=== PATIENT | female | born 2005 | race Caucasian/White ===

== ENCOUNTER 2024-11-07 22:17 | Emergency (ER) | payer OTHER, SELFPAY ==
[2024-11-07 22:19] VITALS: BP 122/70; PULSE 67; RESP 16; TEMP 36.7; O2SAT 100; BMI 21.7
--- NOTE | 2024-11-07 22:48 | RAD_ITS ---
PROCEDURE: HAND MIN 3 VIEWS 11/07/2024 REASON FOR EXAM: ? FB. Dining glasses broke in dish tub. Laceration to palmar surface of hand and to anterior 5th digit. TECHNIQUE: Procedure Code: ENOC Modality: DX Procedure: HAND MIN 3 VIEWS Laterality: Left COMPARISON: None. FINDINGS: BONES: No acute fracture or focal osseous lesion. JOINTS: No dislocation. The joint spaces are normal. SOFT TISSUES: The soft tissues are unremarkable. No evidence of radiodense foreign body. RAD/Hand Min 3 Views IMPRESSION: 1. No acute osseous abnormality. 2. No radiodense foreign body seen. Reading Location: [id number]
--- OUTSIDE RECORDS SUMMARY | 2024-11-07 22:58 | XMS RPT_ITS | CCD ---
Author Organization [facility] Care Team Providers Care Health Therapist Name Role Phone Aydin Cast MD Primary Care Provider Aydin Cast Primary Care Unavailable Tito Mejia Attending Unavailable Aydin Cast Referring Unavailable Assessment, Health Risk Referring Unavaila ble Assessment, Health Risk Attending Unavaila ble Aydin Cast Primary Care Unavailable Aydin Cast MD Primary Care Provider NIRMAL SMILEY Attending Unavailable AYDIN CAST Primary Care Unavailable AYDIN CAST Primary Care Unavailable CORINNE SELLERS Referring Unavailable AYDIN CAST Primary Care Unavailable AYDIN CAST Primary Care Unavailable ENEIDA SALDIVAR Attending Unavailable ABEBA HUGGINS Attending Unavailable AYDIN CAST Primary Care Unavailable NIRMAL SMILEY Referring Unavailable AYDIN CAST Primary Care Unavailable Aydin Cast MD Primary Care Provider Allergies Allergy Classification Reported Allergen(s) Allergy Type Date of Onset Reaction(s) Facility (11 sources) Azithromycin; Translations: [AZITHROMYCIN] Drug Allergy 12-02-2004 [facility] Work Phone: (11 sources) cefdinir; Translations: [CEFDINIR] Drug Allergy 04-04-2006 [facility] Work Phone: Medications Current Medications Medication Drug Class(es) Dates Sig (Normalized) Sig (Original) amoxicillin 500 mg oral capsule (2 sources) Penicillin-class Antibacterial Start: 05-23-2022 End: 06-02-2022 take 1 capsule by mouth twice daily amoxicillin (AMOXIL) 500 mg capsule Take 1 capsule by mouth twice daily for 10 days. 20 capsule 0 05/23/2022 06/02/2022 Active Comment on above: Take 1 capsule by [facility] twice daily for 10 days. drospirenone / Ethinyl Estradiol (14 sources) Progestin, Estrogen Start: 02-07-2024 take 1 tablet by mouth once daily Drospirenone-Ethiny l Estradiol (VESTURA, 28,) 3-0.02 mg per tablet Indications: Encounter for surveillance of contraceptive pills Take 1 tablet by mouth once daily. TAKE ACTIVE PILLS ONLY. FOR CONTINUOUS USE. 112 tablet 5 02/07/2024 Active Start: 02-01-2023 End: 02-07-2024 take 1 tablet by mouth once daily Drospirenone-Ethinyl Estradiol (VESTURA, 28,) 3-0.02 mg per tablet Indications: Encounter for surveillance of contraceptive pills Take 1 tablet by mouth once daily. TAKE ACTIVE PILLS ONLY. FOR CONTINUOUS USE. 112 tablet 5 02/01/2023 02/07/2024 Discontinued Start: 02-01-2023 take 1 tablet by cristiana th once daily Drospirenone-Ethinyl Estradiol (VESTURA, 28,) 3-0.02 mg per tablet Indications: Encounter for surveillance of contraceptive pills Take 1 tablet by mouth once daily. TAKE ACTIVE PILLS ONLY. FOR CONTINUOUS USE. 112 tablet 5 02/01/2023 Active Start: 01-30-2022 End: 02-01-2023 take 1 tablet by mouth once daily Drospirenone-Ethinyl Estradiol (VESTURA, 28,) 3-0.02 mg per tablet Indications: Encounter for surveillance of contraceptive pills Take 1 tablet by mouth once daily. TAKE ACTIVE PILLS ONLY. FOR CONTINUOUS USE. 112 tablet 5 01/30/2022 02/01/2023 Discontinued Start: 01-30-2022 take 1 tablet by cristiana th once daily Drospirenone-Ethinyl Estradiol (VESTURA, 28,) 3-0.02 mg per tablet Indications: Encounter for surveillance of contraceptive pills Take 1 tablet by mouth once daily. TAKE ACTIVE PILLS ONLY. FOR CONTINUOUS USE. 112 tablet 5 01/30/2022 Active Start: 01-15-2022 End: 01-30-2022 take 1 tablet by mouth once daily VESTURA, 28, 3-0.02 mg per tablet Indications: Encounter for surveillance of contraceptive pills TAKE 1 TABLET BY MOUTH EVERY DAY 84 tablet 0 01/15/2022 01/30/2022 Discontinued Start: 01-15-2022 take 1 tablet by cristiana th once daily VESTURA, 28, 3-0.02 mg per tablet Indications: Encounter for surveillance of contraceptive pills TAKE 1 TABLET BY MOUTH EVERY DAY 84 tablet 0 01/15/2022 Active Start: 01-11-2021 End: 01-15-2022 take 1 tablet by mouth once daily Drospirenone-Ethinyl Estradiol (VESTURA, 28,) 3-0.02 mg per tablet Indications: Encounter for surveillance of contraceptive pills Take 1 tablet by mouth once daily. 84 tablet 3 01/11/2021 01/15/2022 Discontinued Start: 01-11-2021 take 1 tablet by cristiana th once daily Drospirenone-Ethinyl Estradiol (VESTURA, 28,) 3-0.02 mg per tablet Indications: Encounter for surveillance of contraceptive pills Take 1 tablet by mouth once daily. 84 tablet 3 01/11/2021 Active Comment on above: Take 1 tablet by cristiana th once daily. TAKE 1 TABLET BY CRISTIANA TH EVERY DAY Take 1 tablet by cristiana th once daily. TAKE ACTIVE PILLS ONLY. FOR CONTINUOUS USE. predniSONE 20 mg oral tablet (2 sources) Start: End: take 2 tablets by mouth once daily predniSONE (DELTASONE) 20 mg tablet Indications: Sore throat Take 2 tablets by mouth once daily for 5 days. 10 tablet 02/05/2024 02/10/2024 Active rizatriptan 5 mg oral tablet (3 sources) Serotonin-1b and Serotonin-1d Receptor Agonist Start: take 1 tablet by mouth every two hours as needed for headache rizatriptan (MAXALT) 5 mg tablet Indications: Migraine without aura and without status migrainosus, not intractable Take 1 tablet (5 mg) by mouth as needed for migraine headache (see administration instructions). May repeat dose after 2 hours if needed. Maximum daily dose is 30 mg per day. 12 tablet 02/18/2023 Active Comment on above: Take 1 tablet (5 mg) by mouth as needed for migraine headache (see administration instructions). May repeat dose after 2 hours if needed. Maximum daily dose is 30 mg per day. spironolactone 100 mg oral tablet (3 sources) Aldosterone Antagonist Start: End: take 1 tablet by mouth once daily spironolactone (ALDACTONE) 100 mg tablet TAKE ONE PILL BY MOUTH ONCE A DAY AT THE SAME TIME EVERY DAY 0 01/12/2020 01/30/2022 Discontinued Comment on above: TAKE ONE PILL BY CRISTIANA TH ONCE A DAY AT THE SAME TIME EVERY DAY Problems Active Problems Problem Classification Problem Date Documented Date Episodic/Chronic Contraceptive and procreative management (5 sources) Oral contraception; Translations: [Encounter for surveillance of contraceptive pills] Episodic Headache; including migraine (1 source) Migraine without aura, not refractory ; Translations: [Migraine without aura, not intractable, without status migrainosus] 02-18-2023 Chronic Immunizations and screening for infectious disease (5 sources) Patient encounter status; Translations: [Encounter for screening for infections with a predominantly sexual mode of transmission] Onset: 03-02-2022 Episodic Other upper respiratory infections (2 sources) Sore throat symptom; Translations: [Acute pharyngitis, unspecified] Episodic Residual codes; unclassified (1 source) History of syncope; Translations: [Personal history of other specified conditions] Episodic Syncope (1 source) Near syncope; Translations: [Syncope and collapse] 02-18-2023 Episodic Past or Other Problems Problem Classification Problem Date Documented Da te Episodic/Chronic Conditions associated with dizziness or vertigo (2 sources) Dizziness; Translations: [Dizziness and giddiness] Onset: 08-09-2022 Episodic Other skin disorders (10 sources) Infection of sebaceous cyst; Translations: [Sebaceous cyst] Onset: 09-28-2015 09-28-2015 Episodic Residual codes; unclassified (1 source) Personal history of other specified conditions; Translations: [History of syncope] Onset: 08-09-2022 Episodic Results Test Name Value Interpretation Reference Range Facility STREP A MOLECULAR (POC)on Procedural Control Valid [facility] Strep A (POCT) Negative Negative [facility] CNOVon 02-01-2023 CNOV Office Visit (OBGYWM ) LEONARD CRUZ ([id number]) 1 F Date Time Provider Department 02/01/23 9:30 AM ABEBA HUGGINS OBGYWM During your visit today, we recorded the following information about you: Blood pressure Weight Height Last Period 58.7 kg 1.651 m 01/19/23 Abeba Huggins APRN.DAIRY ASSOCIATE 02/01/2023 9:36 AM Signed Leonard is a 17 year old No obstetric history on file. who presents for an annual gynecologic exam without complaints. Presents: alone Menses: cycles every 28-30 days and 5 days of flow. Contraception: combined hormonal contraceptives HPV vaccine: Yes Last pap smear: never Sexually active: Yes Patient concerns for STD exposure: No. Same partner for 1.5 yrs Pain with intercourse: No Postcoital bleeding: No OB History No obstetric history on file. Credit Negotiator History LMP: 07/19/2022 (Approximate), Having periods Age at Menarche: Age at First : Age at Menopause: Credit Neg[employer]iator History Comments: Sexual Activity: Yes; Male Contraception: Pill PAST MEDICAL HISTORY Diagnosis Date Infected sebaceous cyst Menstrual cycle disorder 09/2015 Age 10 PMH - PAST MEDICAL HISTORY OF recurrent ear infections PMH - PAST MEDICAL HISTORY OF 09/2008 normal color vision PAST SURGICAL HISTORY Procedure Laterality Date ADENOIDECTOMY UNDER AGE 10 SUTURES -SPECIFY above right eyebrow around age 2 years TYMPANOSTOMY LOCAL/TOPICAL ANESTHESIA 10/16/2004 procedure done twice and has had adenoids out FAMILY HISTORY Problem Relation Age of Onset Hypothyroidism Mother No Known Problems Father No Known Problems Sister No Known Problems Brother No Known Problems Brother No Known Problems Maternal Grandmother other (stomach anuerysm) Paternal Grandfather Heart Other PATERNAL AND MATERNAL SIDE Diabetes Other PATERNAL AND MATERNAL SIDE Cancer Other PATERNAL SIDE other (KIDNEY) Other MATERNAL SIDE SOCIAL HISTORY Social History Tobacco Use Smoking status: Never Passive exposure: Never Smokeless tobacco: Never Vaping Use Vaping Use: Never used Substance Use Topics Alcohol use: No Drug use: No REVIEW OF SYSTEMS Abdomen: No bloating, early satiety, indigestion, or increased flatulence. No abdominal pain, nausea, vomiting, diarrhea, or constipation. Bladder: No dysuria, gross hematuria, urinary frequency, urinary urgency, or incontinence. Breast: No breast lumps, nipple d/c, overlying skin changes, redness or skin retraction. Allergies and current medication updated:Yes EXAM: LMP 07/19/2022 GENERAL: pleasant, in no apparent distress HEENT: Normocephalic, atraumatic, mucus membranes moist, and no lesions CHEST: Normal inspiratory effort NEURO: alert and oriented x3,exam grossly non-focal EXTREMITIES: normal ASSESSMENT/PLAN: 1) Health maintenance: Pap starting at the age of 19. Safe sex practices reviewed. HPV vaccine completed series.. 2) Contraception: combined hormonal contraceptives. Contraceptive options reviewed and information provided. 3) STD screening: Declined STD check. 4) Follow up one year or sooner as needed. Abeba Huggins APRN.CNP Referring Provider: SELF [200] Allergies As of Date: 02/01/2023 Noted Allergy Reaction OMNICEF (CEFDINIR) 04/04/2006 4 - Hives ZITHROMAX (AZITHROMYCIN) 12/02/2004 4 - Hives Date Reviewed: 02/01/2023 Reviewed by: Abeba Huggins APRN.DAIRY ASSOCIATE - Fully Assessed Reason for Visit: Yearly Exam [187] Immunizations [194] Cmt: Flu vaccination Primary Visit Diagnosis:Encounter for gynecological examination without abnormal finding [Z01.419] Other Visit Diagnoses:Encounter for surveillance of contraceptive pills [Z30.41] Need for influenza vaccination [Z23] Order(s):INFLUENZA VACCINE, AGE 6 MO - 64 YR, QUADRIVALENT (AFLURIA, FLULAVAL, FLUZONE) [[id number]] Order #: [id number] Drospirenone-Ethinyl Estradiol (VESTURA, 28,) 3-0.02 mg per tabletTake 1 tablet by mouth once daily. TAKE ACTIVE PILLS ONLY. FOR CONTINUOUS USE.Disp: 112 tabletRfl: 5 Prescriptions as of 02/01/2023 - Drospirenone-Ethinyl Estradiol (VESTURA, 28,) 3-0.02 mg per tablet Take 1 tablet by mouth once daily. TAKE ACTIVE PILLS ONLY. FOR CONTINUOUS USE. Meds Comments as of 10/10/2021: 10/10/2021 Pt. stating is not taking spironolactone [place] Problem List As Of Date 02/01/2023 Noted Resolved Infected sebaceous cyst [L72.3, L08.9] 09/28/2015 Prescriptions ordered this encounter Disp Refills Start End DROSPIRENONE 3 MG-ETHINYL ESTRADIOL * 112 * 5 02/01/2023 Route: ORAL Sig: Take 1 tablet by mouth once daily. TAKE ACTIVE PILLS ONLY. FOR CONTINUOUS USE. Medications Discontinued During This Encounter Prescriptions - Drospirenone-Ethinyl Estradiol (VESTURA, 28,) 3-0.02 mg per tablet (Discontinued) Take 1 tablet by mouth once daily. TAKE ACTIVE PILLS ONLY. FOR CONTINUOUS USE. Disposition: Return in about (more content not included)... Normal [facility] Comprehensive metabolic 2000 panelon 08-10-2022 Albumin [Mass/Vol] 4.2 g/dL 3.9 - 4.9 g/dL [facility] ALP [Catalytic activity/Vol] 48 U/L 45 - 87 U/L [facility] ALT [Catalytic activity/Vol] 10 U/L 7 - 38 U/L [facility] Anion gap [Moles/Vol] 11 mmol/L 9 - 18 mmol/L [facility] AST [Catalytic activity/Vol] 16 U/L 13 - 35 U/L [facility] Bilirubin [Mass/Vol] 0.4 mg/dL 0.2 - 1.3 mg/dL [facility] Calcium [Mass/Vol] 9.8 mg/dL 8.5 - 10. 2 mg/dL [facility] Chloride [Moles/Vol] 103 mmol/L 97 - 105 mmol/L [facility] CO2 [Moles/Vol] 25 mmol/L 22 - 30 mmol/L [facility] Creatinine [Mass/Vol] 1.02 mg/dL High 0.58 - 0.96 mg/dL [facility] Estimated Glomerular Filtration Rate 82 mL/min/1.73m >=60 mL/min/1.73m [facility] Glucose [Mass/Vol] 80 mg/dL 74 - 99 mg/dL [facility] Potassium [Moles/Vol] 4.3 mmol/L 3.7 - 5.1 mmol/L [facility] Protein [Mass/Vol] 7.5 g/dL 6.3 - 8.0 g/dL [facility] Sodium [Moles/Vol] 139 mmol/L 136 - 144 mmol/L [facility] Urea nitrogen [Mass/Vol] 12 mg/dL 7 - 21 mg/dL [facility] ECG COMPLETEon 08-10-2022 Atrial Rate 64 BPM [facility] Calculated P [place] -10 degrees [facility] Calculated R [place] 74 degrees [facility] Calculated T [place] 32 degrees [facility] P-R Interval 94 ms [facility] QRS Duration 90 ms [facility] QT Interval 412 ms [facility] QTC Calculation (Bazett) 425 ms [facility] Ventricular Rate 64 BPM [facility] FERRITIN Don 08-10-2022 Ferritin [Mass/Vol] 25.6 ng/mL 14.7 - 2 05.1 ng/mL [facility] T4 FREE/FREE THYROXon 2022 Free T4 [Mass/Vol] 1.2 ng/dL 0.9 - 1.7 ng/dL [facility] TSH [facility] 08-10-2022 TSH Qn 1.410 m[IU]/L 0.510 - 4.300 mIU/L [facility] CBC W Auto Differential pane l (Bld)on 08-09-2022 Basophils (Bld) [#/Vol] 0.07 10*3/uL <0.11 k/uL [facility] Basophils/100 WBC (Bld) 0.8 % [facility] Differential cell count method Nom (Bld) Auto [facility] Eosinophils (Bld) [#/Vol] 0.11 10*3/uL <0.46 k/uL [facility] Eosinophils/100 WBC (Bld) 1.3 % [facility] Erythrocyte distribution width (RBC) [Ratio] 12.6 % 11.5 - 15.0 % [facility] Hematocrit (Bld) [Volume fraction] 40.8 % 36.0 - 46.0 % [facility] Hemoglobin (Bld) [Mass/Vol] 13.8 g/dL 11.5 - 15.5 g/dL [facility] Immature granulocytes (Bld) [#/Vol] <0.10 k/uL [facility] Immature granulocytes/100 WBC (Bld) 0.2 % [facility] Lymphocytes (Bld) [#/Vol] 2.40 10*3/uL 1.00 - 4.00 k/uL [facility] Lymphocytes/100 WBC (Bld) 27.6 % [facility] MCH (RBC) [Entitic mass] 29.4 pg 26.0 - 34.0 pg [facility] MCHC (RBC) [Mass/Vol] 33.8 g/dL 30.5 - 36.0 g/dL [facility] MCV (RBC) [Entitic vol] 86.8 fL 80.0 - 100.0 fL [facility] Monocytes (Bld) [#/Vol] 0.47 10*3/uL <0.87 k/uL [facility] Monocytes/100 WBC (Bld) 5.4 % [facility] Neutrophils (Bld) [#/Vol] 5.61 10*3/uL 1.45 - 7.50 k/uL [facility] Neutrophils/100 WBC (Bld) 64.7 % [facility] Nucleated RBC (Bld) [#/Vol] <0.01 k/uL [facility] Nucleated RBC/100 WBC (Bld) [Ratio] 0.0 /100 WBC [facility] Platelet mean volume (Bld) [Entitic vol] 11.3 fL 9.0 - 12.7 fL [facility] Platelets (Bld) [#/Vol] 306 10*3/uL 150 - 400 k/uL [facility] RBC (Bld) [#/Vol] 4.70 10*6/uL 3.90 - 5.2 0 m/uL [facility] WBC (Bld) [#/Vol] 8.68 10*3/uL 3.70 - 11. 00 k/uL [facility] Basophils (Bld) [#/Vol] 0.07 10*3/uL Normal <0.11 [facility] Comment on above: Order Comment: Speci men Type: BLOOD SPECIMEN Ordering Facility: [facility] Address: [address] [address] Performed By: #### 5 7021-8 #### [facility] CLIA [id number] [address] Basophils/100 WBC (Bld) 0.8 % Normal [facility] Comment on above: Order Comment: Speci men Type: BLOOD SPECIMEN Ordering Facility: [facility] Address: [address] [address] Performed By: #### 5 7021-8 #### [facility] CLIA [id number] [address] [place] [address] [place] Differential cell count method Nom (Bld) Auto Normal [facility] Comment on above: Order Comment: Speci men Type: BLOOD SPECIMEN Ordering Facility: [facility] Address: [address] [place] [address] Performed By: #### 5 7021-8 #### [facility] CLIA [id number] [facility] [place] [address] [place] Eosinophils (Bld) [#/Vol] 0.11 10*3/uL Normal <0.46 [facility] Comment on above: Order Comment: Speci men Type: BLOOD SPECIMEN Ordering Facility: [facility] Address: [address] [place] [address] Performed By: #### 5 7021-8 #### [facility] CLIA [id number] [address] [place] [address] [place] Eosinophils/100 WBC (Bld) 1.3 % Normal [facility] Comment on above: Order Comment: Speci men Type: BLOOD SPECIMEN Ordering Facility: [facility] Address: [address] [place], [place] [address] Performed By: #### 5 7021-8 #### [facility] CLIA [id number] [address] [place] [address] [place] Erythrocyte distribution width (RBC) [Ratio] 12.6 % Normal 11.5-15.0 [facility] Comment on above: Order Comment: Speci men Type: BLOOD SPECIMEN Ordering Facility: [facility] Address: [address] [place], [place] [address] Performed By: #### 5 7021-8 #### [facility] CLIA [id number] [address] [place] [address] [place] Hematocrit (Bld) [Volume fraction] 40.8 % Normal 36.0-46.0 [facility] Comment on above: Order Comment: Speci men Type: BLOOD SPECIMEN Ordering Facility: [facility] Address: [address] Performed By: #### 5 7021-8 #### [facility] CLIA [id number] [address] [place] [address] [place] Hemoglobin (Bld) [Mass/Vol] 13.8 g/dL Normal 11.5-15.5 [facility] Comment on above: Order Comment: Speci men Type: BLOOD SPECIMEN Ordering Facility: [facility] Address: [address] Performed By: #### 5 7021-8 #### [facility] CLIA [id number] [address] [place] [address] [place] Immature granulocytes (Bld) [#/Vol] 10*3/uL Normal <0.10 [facility] Comment on above: Order Comment: Speci men Type: BLOOD SPECIMEN Ordering Facility: [facility] Address: [address] Performed By: #### 5 7021-8 #### [facility] CLIA [id number] [address] [place] [address] [place] Immature granulocytes/100 WBC (Bld) 0.2 % Normal [facility] Comment on above: Order Comment: Speci men Type: BLOOD SPECIMEN Ordering Facility: [facility] Address: [address] Performed By: #### 5 7021-8 #### [facility] CLIA [id number] [address] [place] [address] [place] Lymphocytes (Bld) [#/Vol] 2.40 10*3/uL Normal 1.00-4.00 [facility] Comment on above: Order Comment: Speci men Type: BLOOD SPECIMEN Ordering Facility: [facility] Address: [address] Performed By: #### 5 7021-8 #### [facility] CLIA [id number] [address] [place] [address] [place] Lymphocytes/100 WBC (Bld) 27.6 % Normal [facility] Comment on above: Order Comment: Speci men Type: BLOOD SPECIMEN Ordering Facility: [facility] Address: [address] [place] [address] Performed By: #### 5 7021-8 #### [facility] CLIA [id number] [address] [place] [address] [place] MCH (RBC) [Entitic mass] 29.4 pg Normal 26.0-34.0 [facility] Comment on above: Order Comment: Speci men Type: BLOOD SPECIMEN Ordering Facility: [facility] Address: [address] [place] [address] Performed By: #### 5 7021-8 #### [facility] CLIA [id number] [address] [place] [address] [place] MCHC (RBC) [Mass/Vol] 33.8 g/dL Normal 30.5-36.0 [facility] Comment on above: Order Comment: Speci men Type: BLOOD SPECIMEN Ordering Facility: [facility] Address: [address] [place], [place] [address] Performed By: #### 5 7021-8 #### [facility] CLIA [id number] [address] [place] [address] [place] MCV (RBC) [Entitic vol] 86.8 fL Normal 80.0-100.0 [facility] Comment on above: Order Comment: Speci men Type: BLOOD SPECIMEN Ordering Facility: [facility] Address: [address] [place], [place] [address] Performed By: #### 5 7021-8 #### [facility] CLIA [id number] [address] [place] [address] [place] Monocytes (Bld) [#/Vol] 0.47 10*3/uL Normal <0.87 [facility] Comment on above: Order Comment: Speci men Type: BLOOD SPECIMEN Ordering Facility: [facility] Address: [address] Performed By: #### 5 7021-8 #### [facility] CLIA [id number] [address] [place] [address] [place] Monocytes/100 WBC (Bld) 5.4 % Normal [facility] Comment on above: Order Comment: Speci men Type: BLOOD SPECIMEN Ordering Facility: [facility] Address: [address] Performed By: #### 5 7021-8 #### [facility] CLIA [id number] [address] [place] [address] [place] Neutrophils (Bld) [#/Vol] 5.61 10*3/uL Normal 1.45-7.50 [facility] Comment on above: Order Comment: Speci men Type: BLOOD SPECIMEN Ordering Facility: [facility] Address: [address] Performed By: #### 5 7021-8 #### [facility] CLIA [id number] [address] [place] [address] [place] Neutrophils/100 WBC (Bld) 64.7 % Normal [facility] Comment on above: Order Comment: Speci men Type: BLOOD SPECIMEN Ordering Facility: [facility] Address: [address] Performed By: #### 5 7021-8 #### [facility] CLIA [id number] [address] [place] [address] [place] Nucleated RBC (Bld) [#/Vol] 10*3/uL Normal <0.01 [facility] Comment on above: Order Comment: Speci men Type: BLOOD SPECIMEN Ordering Facility: [facility] Address: [address] Performed By: #### 5 7021-8 #### [facility] CLIA [id number] [address] [place] [address] [place] Nucleated RBC/100 WBC (Bld) [Ratio] 0.0 /100 WBC Normal [facility] Comment on above: Order Comment: Speci men Type: BLOOD SPECIMEN Ordering Facility: [facility] Address: [address] [place], [place] [address] Performed By: #### 5 7021-8 #### [facility] CLIA [id number] [address] [place] [address] [place] Platelet mean volume (Bld) [Entitic vol] 11.3 fL Normal 9.0-12.7 [facility] Comment on above: Order Comment: Speci men Type: BLOOD SPECIMEN Ordering Facility: [facility] Address: [address] [place] [address] Performed By: #### 5 7021-8 #### [facility] CLIA [id number] [address] [place] [address] [place] Platelets (Bld) [#/Vol] 306 10*3/uL Normal 150-400 [facility] Comment on above: Order Comment: Speci men Type: BLOOD SPECIMEN Ordering Facility: [facility] Address: [address] [place], [place] [address] Performed By: #### 5 7021-8 #### [facility] CLIA [id number] [address] [place] [address] [place] RBC (Bld) [#/Vol] 4.70 10*6/uL Normal 3.90-5.20 [facility] Comment on above: Order Comment: Speci men Type: BLOOD SPECIMEN Ordering Facility: [facility] Address: [address] [place], [place] [address] Performed By: #### 5 7021-8 #### [facility] CLIA [id number] [address] [place] [address] [facility] WBC (Bld) [#/Vol] 8.68 10*3/uL Normal 3.70-11.00 [facility] Comment on above: Order Comment: Speci men Type: BLOOD SPECIMEN Ordering Facility: [facility] Address: [address] [id number] Performed By: #### 5 7021-8 #### [facility] CLIA [id number] [address] [facility] [address] [facility] CNOVon 08-09-2022 CNOV Office Visit (PEDSWS ) LEONARD CRUZ ([id number]) 1 F Date Time Provider Department 08/09/22 3:30 PM NIRMAL SMILEY During your visit today, we recorded the following information about you: Temperature Pulse Respiration Blood pressure 98.1 degrees 84/minute 12/minute 110/74 Weight Last Period 58.5 kg 07/19/22 Nirmal Smiley APRN.DAIRY ASSOCIATE 08/15/2022 5:38 PM Signed PEDIATRIC SICK VISIT SUBJECTIVE: Leonard Villegas is a 16 year old accompanied by mother. Patient presents with: Dizzy spells : Has been having dizzy spells since she had strep throat on 05/23/2022. Reporting that she had syncope while in express care being seen for strep throat, denies any other syncope. Dizzy spells almost daily, but not every single day. Episodes are very short only a few seconds in length, happens with exercise at the gym and at work more often. 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 Had moment at [employer] recently when her heart was racing and she felt like she couldn't take a deep breath History was obtained from: patient Current symptoms: FEVER: not present at this time EYE SYMPTOMS: not present at this time NASAL CONGESTION: not present at this time EAR SYMPTOMS: not present at this time COUGH: not present at this time SORE THROAT: not present at this time HEADACHE: not present at this time VOMITING: not present at this time NAUSEA: not present at this time DIARRHEA: not present at this time ABDOMINAL PAIN: not present at this time RASH: not present at this time GENERAL: Activity level at child's baseline Appetite: no significant change Sick contacts: No known sick contacts HISTORY: ACTIVE PROBLEM LIST Infected Sebaceous Cyst PAST MEDICAL HISTORY Diagnosis Date - Infected sebaceous cyst - Menstrual cycle disorder 09/2015 Age 10 - PMH - PAST MEDICAL HISTORY OF recurrent ear infections - PMH - PAST MEDICAL HISTORY OF 09/2008 normal color vision PAST SURGICAL HISTORY Procedure Laterality Date - ADENOIDECTOMY UNDER AGE 10 - SUTURES -SPECIFY above right eyebrow around age 2 years - TYMPANOSTOMY LOCAL/TOPICAL ANESTHESIA 10/16/2004 procedure done twice and has had adenoids out Allergies: ALLERGIES Allergen Reactions - Omnicef [Cefdinir] Hives - Zithromax [Azithrom* Hives Medications: - Drospirenone-Ethinyl Estradiol (VESTURA, 28,) 3-0.02 mg per tablet Take 1 tablet by mouth once daily. TAKE ACTIVE PILLS ONLY. FOR CONTINUOUS USE. OBJECTIVE: BP 110/74 Pulse 84 Temp 36.7 ?C (98.1 ?F) (Temporal Artery) Resp 12 Wt 58.5 kg (129 lb) LMP 07/19/2022 (Approximate) General: well appearing, alert and active in no apparent distress Eyes: conjunctiva clear, PERRL Ears: TMs translucent bilaterally, normal landmarks noted Nose: no rhinorrhea, no mucosal edema OP: no lesions, no erythema, moist mucous membranes Neck: supple, no adenopathy Lungs: clear to auscultation bilaterally, good air exchange, no retractions, no wheezes or crackles CVS: Normal rate, regular rhythm, no murmur Abdomen: soft, nondistended, nontender, no hepatosplenomegaly or masses, and no rebound or guarding Skin: No rashes, lesions or skin changes Neuro: No focal deficits or abnormal findings present ASSESSMENT/PLAN: Encounter Diagnosis ICD-10-CM 1. Dizziness R42 CBC + DIFF COMP METABOLIC PANEL FERRITIN BLD TSH BLD T4 FREE/FREE THYROX ECG COMPLETE 2. History of syncope Z87.898 CBC + DIFF COMP METABOLIC PANEL FERRITIN BLD TSH BLD T4 FREE/FREE THYROX ECG COMPLETE - EKG normal in office. Consulted with Dr. Cast. Pending final reading by cardiology. - Orthostatic vitals not consistent with orthostatic hypotension or POTS. - Labs ordered and results pending. - Likely vasovagal syncope - Discussed importance of regular hydration, adequate salt intake, eating regularly. May trial compression stockings. - Return to clinic for persistent or worsening symptoms, as needed based on lab results, or for any concerns. Medical Decision Making: Problems: Moderate: New problem with uncertain prognosis Data: Unique test(s) ordered: 3+ Risk: Low: Low risk from testing/treatment Medical Decision Making Level: 4 - Moderate Allergies As of Date: 08/09/2022 Noted Allergy Reaction OMNICEF (CEFDINIR) 04/04/2006 4 - Hives ZITHROMAX (AZITHROMYCIN) 12/02/2004 4 - Hives Date Reviewed: 08/09/2022 Reviewed by: Nirmal Smiley APRN.DAIRY ASSOCIATE - Fully Assessed Reason for Visit: Dizzy spells [Other] Cmt: Has been having dizzy spe (more content not included)... Normal [facility] Comprehensive metabolic 2000 panelon 08-09-2022 Albumin [Mass/Vol] 4.2 g/dL Normal 3.9-4.9 [facility] Comment on above: Order Comment: Tricia chavez Type: BLOOD SPECIMEN Ordering Facility: [facility] Address: [address] [place], [place] [phone] Performed By: #### 2 276-4, 3016-3, 95158-4, 1714-7 #### [facility] CLIA [id number] [address] [facility] [place] [address] [place] ALP [Catalytic activity/Vol] 48 U/L Normal 45-87 [facility] Comment on above: Order Comment: Speci men Type: BLOOD SPECIMEN Ordering Facility: [facility] Address: [address] [place], [place] [address] Performed By: #### 2 276-4, 3016-3, 86766-6, 302-7 #### [facility] CLIA [id number] [address] [place] [address] [place] ALT [Catalytic activity/Vol] 10 U/L Normal 7-38 [facility] Comment on above: Order Comment: Speci men Type: BLOOD SPECIMEN Ordering Facility: [facility] Address: [address] [place] [address] Performed By: #### 2 276-4, 3016-3, 95223-6, 302-7 #### [facility] CLIA [id number] [address] [place] [address] [place] Anion gap [Moles/Vol] 11 mmol/L Normal 9-18 [facility] Comment on above: Order Comment: Speci men Type: BLOOD SPECIMEN Ordering Facility: [facility] Address: [address] [place] [address] Performed By: #### 2 276-4, 3016-3, 57327-0, 302-7 #### [facility] CLIA [id number] [address] [place] [address] [place] AST [Catalytic activity/Vol] 16 U/L Normal 13-35 [facility] Comment on above: Order Comment: Speci men Type: BLOOD SPECIMEN Ordering Facility: [facility] Address: [address] [place], [place] [address] Performed By: #### 2 276-4, 3016-3, 28263-0, 302-7 #### [facility] CLIA [id number] [address] [place] [address] [place] Bilirubin [Mass/Vol] 0.4 mg/dL Normal 0.2-1.3 [facility] Comment on above: Order Comment: Speci men Type: BLOOD SPECIMEN Ordering Facility: [facility] Address: [address] [place], [place] [phone] Performed By: #### 2 276-4, 3016-3, 39556-9, 3024-7 #### [facility] CLIA [id number] [address] [place] [address] [place] Calcium [Mass/Vol] 9.8 mg/dL Normal 8.5-10.2 [facility] Comment on above: Order Comment: Speci men Type: BLOOD SPECIMEN Ordering Facility: [facility] Address: [address] [place], [place] [address] Performed By: #### 2 276-4, 3016-3, 51601-2, 302-7 #### [facility] CLIA [id number] [address] [place] [address] [place] Chloride [Moles/Vol] 103 mmol/L Normal 97-105 [facility] Comment on above: Order Comment: Speci men Type: BLOOD SPECIMEN Ordering Facility: [facility] Address: [address] [place], [place] [address] Performed By: #### 2 276-4, 3016-3, 36658-1, 302-7 #### [facility] CLIA [id number] [address] [place] [address] [place] CO2 [Moles/Vol] 25 mmol/L Normal 22-30 [facility] Comment on above: Order Comment: Speci men Type: BLOOD SPECIMEN Ordering Facility: [facility] Address: [address] [place], [place] [phone] Performed By: #### 2 276-4, 3016-3, 18303-1, 3024-7 #### [facility] CLIA [id number] [address] [place] [address] [place] Creatinine [Mass/Vol] 1.02 mg/dL High 0.58-0.96 [facility] Comment on above: Order Comment: Speci men Type: BLOOD SPECIMEN Ordering Facility: [facility] Address: [address] [place] [address] Performed By: #### 2 276-4, 3016-3, 17968-4, 3024-7 #### [facility] CLIA [id number] [address] [place] [address] [place] ESTIMATED GLOMERULAR FILTRATION RATE 82 mL/min/1.73m??? Normal >=60 [facility] Comment on above: Order Comment: Tricia chavez Type: BLOOD SPECIMEN Ordering Facility: [facility] Address: [address] [phone] Result Comment: Wilma mated Glomerular Filtration Rate (eGFR) is calculated using the 2020 CKD-EPI creatinine equation. This equation utilizes serum creatinine, sex, and age as parameters. The creatinine assay has traceable calibration to isotope dilution-mass spectrometry. Refer to KDIGO guidelines for clinical interpretation. In patients with unstable renal function, e.g. those with acute kidney injury, the eGFR may not accurately reflect actual GFR. Performed By: #### 2 276-4, 3016-3, 36014-5, 3024-7 #### [facility] CLIA [id number] [address] [place] [address] [place] Glucose [Mass/Vol] 80 mg/dL Normal 74-99 [facility] Comment on above: Order Comment: Tricia chavez Type: BLOOD SPECIMEN Ordering Facility: [facility] Address: [address] [place], [place] [phone] Result Comment: The [place] Diabetes Association (ADA) provides guidance for cutoff values for fasting glucose and random glucose. The ADA defines fasting as no caloric intake for at least 8 hours. Fasting plasma glucose results between 100 to 125 mg/dL indicate increased risk for diabetes (prediabetes). Fasting plasma glucose results greater than or equal to 126 mg/dL meet the criteria for diagnosis of diabetes. In the absence of unequivocal hyperglycemia, results should be confirmed by repeat testing. In a patient with classic symptoms of hyperglycemia or hyperglycemic crisis, random plasma glucose results greater than or equal to 200 mg/dL meet the criteria for diagnosis of diabetes. Reference: Standards of Medical Care in Diabetes 2016, [place] Diabetes Association. Diabetes Care. 2016.39(Suppl 1). Performed By: #### 2 276-4, 3016-3, 04832-6, 3024-7 #### [facility] CLIA [id number] [address] [place] [address] [place] Potassium [Moles/Vol] 4.3 mmol/L Normal 3.7-5.1 [facility] Comment on above: Order Comment: Speci men Type: BLOOD SPECIMEN Ordering Facility: [facility] Address: [address] Performed By: #### 2 276-4, 3016-3, 88384-2, 302-7 #### [facility] CLIA [id number] [address] [place] [address] [place] Protein [Mass/Vol] 7.5 g/dL Normal 6.3-8.0 [facility] Comment on above: Order Comment: Speci men Type: BLOOD SPECIMEN Ordering Facility: [facility] Address: [address] [place], [place] [address] Performed By: #### 2 276-4, 3016-3, 26291-4, 302-7 #### [facility] CLIA [id number] [address] [place] [address] [place] Sodium [Moles/Vol] 139 mmol/L Normal 136-144 [facility] Comment on above: Order Comment: Speci men Type: BLOOD SPECIMEN Ordering Facility: [facility] Address: [address] [place] [address] Performed By: #### 2 276-4, 3016-3, 81992-0, 302-7 #### [facility] CLIA [id number] [address] [place] [address] [place] Urea nitrogen [Mass/Vol] 12 mg/dL Normal 7-21 [facility] Comment on above: Order Comment: Speci men Type: BLOOD SPECIMEN Ordering Facility: [facility] Address: [address] [place] [address] Performed By: #### 2 276-4, 3016-3, 98268-5, 3024-7 #### [facility] IA [id number] [facility] [place] [address] [place] TEO04ia 08-09-2022 ECG01 Ventricular Rate : 6 4 BPM Atrial Rate : 64 BPM P-R Interval : 94 ms QRS Duration : 90 ms Q-T Interval : 412 ms QTC Calculation(Bazett) : 425 ms Calculated P [place] : -10 degrees Calculated R [place] : 74 degrees Calculated T [place] : 32 degrees LOW RIGHT ATRIAL RHYTHM Confirmed by GABRIEL DOUGLAS M.D. (82) on 08/10/2022 8:02:38 AM NAME : LEONARD CRUZ PID : [id number] : 2005 Gender : Female Race : ORD : Procedure Date : Aug 09 2022 16:02:07 Edit Date : Aug 10 2022 08:02:42 Diagnosis: LOW RIGHT ATRIAL RHYTHM Confirmed by GABRIEL DOUGLAS M.D. (82) on 08/10/2022 8:02:38 AM Test Reason : dizzy Location : 144 : [facility] Overread By : GABRIEL DOUGLAS M.D. Edited By : GABRIEL DOUGLAS M.D. Referred By : nirmal smiley Acquired by : manoj cordero, Normal [facility] Ferritin SerPl-mCncon 2022 Ferritin [Mass/Vol] 25.6 ng/mL Normal 14.7-205.1 [facility] Comment on above: Order Comment: Speci men Type: BLOOD SPECIMEN Ordering Facility: [facility] Address: [address] [place] [address] Performed By: #### 2 276-4, 3016-3, 38417-6, 3024-7 #### [facility] IA [id number] [facility] [place] [address] [place] T4 Free SerPl-mCncon 023 Free T4 [Mass/Vol] 1.2 ng/dL Normal 0.9-1.7 [facility] Comment on above: Order Comment: Speci men Type: BLOOD SPECIMEN Ordering Facility: [facility] Address: [address] [phone] Performed By: #### 2 276-4, 3016-3, 06151-5, 3024-7 #### [facility] CLIA [id number] [address] [place] [address] [place] TSH SerPl-aCncon 08-09-2022 TSH Qn 1.410 m[IU]/L Normal 0.510-4.300 [facility] Comment on above: Order Comment: Ambersandeep chavez Type: BLOOD SPECIMEN Ordering Facility: [facility] Address: [address] Result Comment: If t he patient is , TSH reference range varies by gestational period: First Trimester (weeks 9-12): 0.180-2.990 mIU/L Second Trimester: 0.110-3.980 mIU/L Third Trimester: 0.480-4.710 mIU/L Brad Barber et al. A Practical Approach for the Verifications and Determination of Site- and Trimester-Specific Reference Intervals for Thyroid Function tests in . Thyroid, 2019:29:3:412-420. Eliecer E, et al. 2017 Guidelines of the [place] Thyroid Association for the Diagnosis and Management of Thyroid Disease during and the . Thyroid, 2017:27:3:315-389. Reference ranges were not locally established for this patient's age group. The normal values are based on the following source: Natalio W, Kira V. Reference Ranges for Adults and Children: Pre-analytical Considerations. [employer] Performed By: #### 2 276-4, 3016-3, 15575-2, 3024-7 #### [facility] CLIA [id number] [address] [place] [address] [place] CNOVon 05-23-2022 CNOV Office Visit (UCWSTR ) RADHA LEONARD VILLEGAS ([id number]) 1 F Date Time Provider Department 05/23/22 9:15 AM CATHERINE COON During your visit today, we recorded the following information about you: Temperature Pulse Respiration Blood pressure 99.8 degrees 110/minute 16/minute 112/66 Weight 56.2 kg Catherine Coon APRN.DAIRY ASSOCIATE 05/23/2022 9:55 AM Signed Subjective HPI Christine presents with one day hx of sorethroat and headache, she states her parents were sick for a few weeks and 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 She states she has not had a fever, she is eating and drinking well, and denies rash at this time, Feeling very lightheaded as heading to bathroom, pt legs elevated, cool washwrag to head, she has not eaten, juice and water provided, states feels back to her self. Boyfriend called to drive her home, she is aware if this happens again report to ED PAST MEDICAL HISTORY Diagnosis Date Infected sebaceous cyst Menstrual cycle disorder 09/2015 Age 10 PMH - PAST MEDICAL HISTORY OF recurrent ear infections PMH - PAST MEDICAL HISTORY OF 09/2008 normal color vision PAST SURGICAL HISTORY Procedure Laterality Date ADENOIDECTOMY UNDER AGE 10 SUTURES -SPECIFY above right eyebrow around age 2 years TYMPANOSTOMY LOCAL/TOPICAL ANESTHESIA 10/16/2004 procedure done twice and has had adenoids out ALLERGIES Omnicef [Cefdinir] and Zithromax [Azithromycin] MEDICATIONS Drospirenone-Ethinyl Estradiol (VESTURA, 28,) 3-0.02 mg per tablet Take 1 tablet by mouth once daily. TAKE ACTIVE PILLS ONLY. FOR CONTINUOUS USE. amoxicillin (AMOXIL) 500 mg capsule Take 1 capsule by mouth twice daily for 10 days. FAMILY HISTORY Problem Relation Age of Onset Hypothyroidism Mother No Known Problems Father No Known Problems Sister No Known Problems Brother No Known Problems Brother No Known Problems Maternal Grandmother other (stomach anuerysm) Paternal Grandfather Heart Other PATERNAL AND MATERNAL SIDE Diabetes Other PATERNAL AND MATERNAL SIDE Cancer Other PATERNAL SIDE other (KIDNEY) Other MATERNAL SIDE Social History Tobacco Use Smoking status: Never Smokeless tobacco: Never Vaping Use Vaping Use: Never used Substance Use Topics Alcohol use: No Drug use: No Review of Systems HENT: Positive for sore throat. Objective Physical Exam Constitutional: Appearance: Normal appearance. HENT: Head: Normocephalic and atraumatic. Nose: Congestion present. Mouth/Throat: Mouth: Mucous membranes are dry. Pharynx: Posterior oropharyngeal erythema present. No oropharyngeal exudate. Eyes: Extraocular Movements: Extraocular movements intact. Pupils: Pupils are equal, round, and reactive to light. Cardiovascular: Rate and Rhythm: Normal rate and regular rhythm. Pulses: Normal pulses. Heart sounds: No murmur heard. Pulmonary: Effort: Pulmonary effort is normal. Breath sounds: Normal breath sounds. Abdominal: General: Abdomen is flat. Palpations: Abdomen is soft. Musculoskeletal: General: Normal range of motion. Skin: General: Skin is warm. Neurological: General: No focal deficit present. Mental Status: She is alert and oriented to person, place, and time. Psychiatric: Mood and Affect: Mood normal. ASSESSMENT/PLAN: 1. Sore throat - ICD9: 462, ICD10: J02.9 Amox ( she states she has had, she is not allergic) Increase fluids - STREP A MOLECULAR (POC) - RAPID STREP TEST B/O - COVID WITH FLUA+B, ROUTINE Catherine Coon APRN.CNP Allergies As of Date: 05/23/2022 Noted Allergy Reaction OMNICEF (CEFDINIR) 04/04/2006 4 - Hives ZITHROMAX (AZITHROMYCIN) 12/02/2004 4 - Hives Date Reviewed: 01/30/2022 Reviewed by: Corinne Sellers APRN.CNP - Fully Assessed Reason for Visit: Sinus Problem [99] Cmt: sinus pressure, drainage, headache and sore throat x 1 day Primary Visit Diagnosis:Sore throat [J02.9] Order(s):STREP A MOLECULAR (POC) [1723072] Order #: [id number]. #:[id number] RAPID STREP TEST B/O [0945051] Order #: [id number] COVID WITH FLUA+B, ROUTINE [SQCOVFLU] Order #: [id number]. #:[id number] amoxicillin (AMOXIL) 500 mg capsuleTake 1 capsule by mouth twice daily for 10 days.Disp: 20 capsuleRfl: 0 Prescriptions as of 05/23/2022 - amoxicillin (AMOXIL) 500 mg capsule Take 1 capsule by mouth twice daily for 10 days. - Drospirenone-Ethinyl Estradiol (VESTURA, 28,) 3-0.02 mg per tablet Take 1 tablet by mouth once daily. TAKE ACTIVE PILLS ONLY. FOR CONTINUOUS USE. Meds Comments as of 10/10/2021: 10/10/2021 Pt. stating is not taking spironolactone [place] Problem List As Of Date 05/23/2022 Noted Resolved Infected sebaceous cyst [L72.3, L08.9] 09/28/2015 Prescriptions ordered this encounter Disp Refills Start End AMOXICILLIN 500 MG CAPSULE 20 c* 0 05/23/2022 06/02/2022 Route: ORAL S (more content not included)... Normal [facility] FLUABV + SARS-CoV-2 Pnl Resp RAMANDEEP+prbon 05-23-2022 Influenza virus A and B RNA and SARS-CoV-2 (COVID-19) N gene panel RAMANDEEP+probe (Resp) COVID 19 RESULT: Not detected The method used is RT-PCR or an equivalent NAAT method. Reference Range (the expected result in uninfected individuals): Not detected INFLUENZA A PCR: Not detected INFLUENZA B PCR: Not detected Normal [facility] Comment on above: Performed By: #### 9 5422-2 #### [facility] CLIA [id number] [address] [place] [address] [place] STREP A MOLECULAR (POC)on Procedural Control Valid [facility] Strep A (POCT) Positive Abnormal Negative [facility] C trach+GC DNA Ur Ql RAMANDEEP+pro beon 03-02-2022 C. trachomatis+N. gonorrhoeae DNA RAMANDEEP+probe Ql (U) GC AMPLIFICATION: Negative for Neisseria gonorrhoeae by amplification CHLAMYDIA AMPLIFICATION: Negative for Chlamydia trachomatis by amplification Normal [facility] Comment on above: Performed By: #### 4 4806-8 #### [facility] CLIA [id number] [address] [address] [place] Office Visit Reporton 2021 Office Visit Report [facility] [address] [place] [address] OFFICE VISIT Date of Service: 12/15/21 MR#: [id number] Acct: [id number] Patient: LEONARD EDMONDS Rep #: [id number] : 2005 Provider: DEVON jackson Age/Sex: 16/F Location: [facility] Status: Signed Intake Intake Visit Reasons: TB READ 12/15/21 1741 Date Tito Patrick Signature: Date (if applicable) CC: Normal [facility] Vital Signs Date Time Vital Sign Value Performing Clinician Rodney clarke 02-07-2024 10:00-0500 Body height 167 cm Abeba Joseluis TOASTER OPERATOR.DAIRY ASSOCIATE Work Phone: [facility] 02-07-2024 10:00-0500 Body mass index (BMI) [Ratio] 20.07 kg/m2 Abeba Joseluis TOASTER OPERATOR.DAIRY ASSOCIATE Work Phone: [facility] 02-07-2024 10:00-0500 Body weight 55.97 kg Abeba Collins TOASTER OPERATOR.DAIRY ASSOCIATE Work Phone: [facility] 02-07-2024 10:00-0500 Diastolic blood pressure 60 mm[Hg] Abeba Collins TOASTER OPERATOR.DAIRY ASSOCIATE Work Phone: [facility] 02-07-2024 10:00-0500 Systolic blood pressure 98 mm[Hg] Abeba Collins TOASTER OPERATOR.DAIRY ASSOCIATE Work Phone: [facility] 02-05-2024 12:37-0500 Body mass index (BMI) [Ratio] 20.75 kg/m2 Gerardo Jarrell TOASTER OPERATOR.DAIRY ASSOCIATE Work Phone: [facility] 02-05-2024 12:37-0500 Body temperature 97.3 [degF] Gerardoflorin Jarrell TOASTER OPERATOR.DAIRY ASSOCIATE Work Phone: [facility] 02-05-2024 12:37-0500 Body weight 57.6 kg Gerardo Wesly TOASTER OPERATOR.DAIRY ASSOCIATE Work Phone: [facility] 02-05-2024 12:37-0500 Diastolic blood pressure 62 mm[Hg] Gerardoflorin Jarrell TOASTER OPERATOR.DAIRY ASSOCIATE Work Phone: [facility] 02-05-2024 12:37-0500 Heart rate 77 /min Gerardo Jarrell TOASTER OPERATOR.DAIRY ASSOCIATE Work Phone: [facility] 02-05-2024 12:37-0500 Respiratory rate 18 /min Gerardo Jarrell TOASTER OPERATOR.DAIRY ASSOCIATE Work Phone: [facility] 02-05-2024 12:37-0500 SaO2% (BldA) [Mass fraction] 98 % Gerardo Wesly TOASTER OPERATOR.DAIRY ASSOCIATE Work Phone: [facility] 02-05-2024 12:37-0500 Systolic blood pressure 122 mm[Hg] Gerardo Wesly TOASTER OPERATOR.DAIRY ASSOCIATE Work Phone: [facility] 02-18-2023 08:14-0500 Body height 166.6 cm Eneida Saldivar MD Work Phone: [facility] 02-18-2023 08:14-0500 Body temperature 97.7 [degF] Eneida Saldivar MD Work Phone: [facility] 02-18-2023 08:14-0500 Body weight 57.7 kg Eneida Saldivar MD Work Phone: [facility] 02-18-2023 08:14-0500 Diastolic blood pressure 66 mm[Hg] Eneida Saldivar MD Work Phone: [facility] 02-18-2023 08:14-0500 Heart rate 80 /min Eneida Saldivar MD Work Phone: [facility] 02-18-2023 08:14-0500 Respiratory rate 16 /min Eneida Saldivar MD Work Phone: [facility] 02-18-2023 08:14-0500 Systolic blood pressure 104 mm[Hg] Eneida Saldivar MD Work Phone: [facility] 02-01-2023 09:19-0500 Body height 165.1 cm Abeba Joseluis TOASTER OPERATOR.DAIRY ASSOCIATE Work Phone: [facility] 02-01-2023 09:19-0500 Body weight 58.7 kg Abeba Joseluis TOASTER OPERATOR.DAIRY ASSOCIATE Work Phone: [facility] 02-01-2023 09:19-0500 Diastolic blood pressure 62 mm[Hg] Abeba Collins TOASTER OPERATOR.DAIRY ASSOCIATE Work Phone: [facility] 02-01-2023 09:19-0500 Systolic blood pressure 88 mm[Hg] Abeba Collins TOASTER OPERATOR.DAIRY ASSOCIATE Work Phone: [facility] 08-09-2022 15:32-0400 Body temperature 98.1 [degF] Nirmal Smiley TOASTER OPERATOR.DAIRY ASSOCIATE Work Phone: [facility] 08-09-2022 15:32-0400 Body weight 58.51 kg Nirmal Smiley TOASTER OPERATOR.DAIRY ASSOCIATE Work Phone: [facility] 08-09-2022 15:32-0400 Diastolic blood pressure 74 mm[Hg] Nirmal Smiley TOASTER OPERATOR.DAIRY ASSOCIATE Work Phone: [facility] 08-09-2022 15:32-0400 Heart rate 84 /min Nirmal Smiley TOASTER OPERATOR.DAIRY ASSOCIATE Work Phone: [facility] 08-09-2022 15:32-0400 Respiratory rate 12 /min Nirmal Smiley TOASTER OPERATOR.DAIRY ASSOCIATE Work Phone: [facility] 08-09-2022 15:32-0400 Systolic blood pressure 110 mm[Hg] Nirmal Smiley TOASTER OPERATOR.DAIRY ASSOCIATE Work Phone: [facility] 05-23-2022 09:19-0400 Body temperature 99.81 [degF] Catherine Coon TOASTER OPERATOR.DAIRY ASSOCIATE Work Phone: [facility] 05-23-2022 09:19-0400 Body weight 56.25 kg Catherine Coon TOASTER OPERATOR.DAIRY ASSOCIATE Work Phone: [facility] 05-23-2022 09:19-0400 Diastolic blood pressure 66 mm[Hg] Catherine Coon TOASTER OPERATOR.DAIRY ASSOCIATE Work Phone: [facility] 05-23-2022 09:19-0400 Heart rate 110 /min Catherine Coon TOASTER OPERATOR.DAIRY ASSOCIATE Work Phone: [facility] 05-23-2022 09:19-0400 Respiratory rate 16 /min Catherine Coon TOASTER OPERATOR.DAIRY ASSOCIATE Work Phone: [facility] 05-23-2022 09:19-0400 SaO2% (BldA) [Mass fraction] 97 % Catherine Coon TOASTER OPERATOR.DAIRY ASSOCIATE Work Phone: [facility] 05-23-2022 09:19-0400 Systolic blood pressure 112 mm[Hg] Catherine Coon TOASTER OPERATOR.DAIRY ASSOCIATE Work Phone: [facility] 01-30-2022 08:00-0500 Body height 165.1 cm Corinne Sellers APRN.DAIRY ASSOCIATE Work Phone: [facility] 01-30-2022 08:00-0500 Body mass index (BMI) [Percentile] Per age and sex 49.15 % Corinne Sellers APRN.DAIRY ASSOCIATE Work Phone: [facility] 01-30-2022 08:00-0500 Body weight 58.06 kg Corinne Sellers APRN.DAIRY ASSOCIATE Work Phone: [facility] 01-30-2022 08:00-0500 Diastolic blood pressure 68 mm[Hg] Corinne Sellers APRN.DAIRY ASSOCIATE Work Phone: [facility] 01-30-2022 08:00-0500 Systolic blood pressure 102 mm[Hg] Corinne Pollockmary lou BARNES.DAIRY ASSOCIATE Work Phone: [facility] Encounters Encounter Date Encounter Type Care Provider Facility Start: 02-07-2024 End: 02-07-2024 Patient encounter procedure Abeba Huggins APRN.DAIRY ASSOCIATE Work Phone: OB/Gynecology Comment on above: Encounter for gyneco logical examination (general) (routine) without abnormal findings (Primary Dx); Encounter for surveillance of contraceptive pills; Need for influenza vaccination Start: 02-07-2024 End: 02-07-2024 Patient encounter status Abeba Huggins APRN.DAIRY ASSOCIATE Work Phone: [facility] Start: 02-05-2024 End: 02-05-2024 Patient encounter procedure Gerardo Jarrell APRN.DAIRY ASSOCIATE Work Phone: [facility] Comment on above: Sore throat (Primary Dx) Start: 02-18-2023 End: 02-18-2023 ambulatory [facility] Facility:[facility] Start: 02-18-2023 End: 02-18-2023 Patient encounter procedure Eneida Saldivar MD Work Phone: [facility] Comment on above: Encounter for genera l adult medical examination without abnormal findings (Primary Dx); Migraine without aura and without status migrainosus, not intractable; Pre-syncope; Encounter for screening for depression Start: 02-18-2023 End: 02-18-2023 Patient encounter status Eneida Saldivar MD Work Phone: [facility] Work Phone: Start: 02-01-2023 End: 02-01-2023 ambulatory ABEBANAUN BAUERJOSELUIS Facility:[facility] Start: 02-01-2023 End: 02-01-2023 Patient encounter procedure Abeba Huggins TOASTER OPERATOR.DAIRY ASSOCIATE Work Phone: OB/Gynecology Comment on above: Encounter for gyneco logical examination without abnormal finding (Primary Dx); Encounter for surveillance of contraceptive pills; Need for influenza vaccination Start: 02-01-2023 End: 02-01-2023 Patient encounter status Abeba Huggins APRN.DAIRY ASSOCIATE Work Phone: [facility] Start: 08-09-2022 End: 08-10-2022 ambulatory [facility] Facility:[facility] Start: 08-09-2022 End: 08-10-2022 ambulatory [facility] Facility:[facility] Start: 08-09-2022 End: 08-09-2022 Patient encounter procedure Nirmla Smiley TOASTER OPERATOR.DAIRY ASSOCIATE Work Phone: [facility] Comment on above: Dizziness (Primary D x); History of syncope Start: 05-23-2022 Refill Abeba Joseluis TOASTER OPERATOR.DAIRY ASSOCIATE Work Phone: OB/Gynecology Comment on above: Refill Request Start: 05-23-2022 End: 05-23-2022 ambulatory [facility] Facility:[facility] Start: 05-23-2022 End: 05-23-2022 Patient encounter procedure Catherine Coon TOASTER OPERATOR.DAIRY ASSOCIATE Work Phone: [facility] Comment on above: Sore throat (Primary Dx) Start: 03-02-2022 End: 03-02-2022 ambulatory CORINNE SELLERS Facility:[facility] Start: 01-30-2022 End: 01-30-2022 Patient encounter procedure Corinne Sellers APRN.DAIRY ASSOCIATE Work Phone: OB/Gynecology Comment on above: Encounter for gyneco logical examination (general) (routine) without abnormal findings (Primary Dx); Encounter for surveillance of contraceptive pills; Screen for STD (sexually transmitted disease) Start: 01-30-2022 End: 01-30-2022 Patient encounter status Corinne Sellers APRN.DAIRY ASSOCIATE Work Phone: OB/Gynecology Start: 01-14-2022 Refill Corinne ALCOCER RN.DAIRY ASSOCIATE Work Phone: OB/Gynecology Comment on above: Refill Request Start: 12-15-2021 End: 12-15-2021 ambulatory [facility] Facility[facility] Start: 12-06-2021 ambulatory Health Risk Assessment Facility:[facility] Start: 10-10-2021 ambulatory Mary Solo RN NURSE O N CALL Comment on above: Covid19 Concern Procedures Date Procedure Procedure Detail Performing Clinician Start: 02-05-2024 STREP A MOLECULAR (POC) Cleo Lam TOASTER OPERATOR.DAIRY ASSOCIATE Work Phone: Start: 02-18-2023 Adult depression scr eening assessment Gerardo Jarrell TOASTER OPERATOR.DAIRY ASSOCIATE Work Phone: Start: 02-01-2023 INFLUENZA VACCINE, A GE 6 MO - 64 YR, QUADRIVALENT (AFLURIA, FLULAVAL, FLUZONE) Abeba Huggins TOASTER OPERATOR.DAIRY ASSOCIATE Work Phone: Start: 08-09-2022 Ecg routine ecg w/le ast 12 lds i&r only [facility] Provider Start: 05-23-2022 STREP A MOLECULAR (POC) Hussein Johnson MD Work Phone: Start: 01-12-2021 Adult depression scr eening assessment Mary Solo RN Plan of Treatment Date Care Activity Detail Author Start: 02-15-2025 End: 02-15-2025 Patient encounter procedure 02/15/2025 9:00 AM EST Office Visit OB/Gynecology [address] [place] [address] Abeba Huggins TOASTER OPERATOR.[facility] [address] [place] [address] Annual OB/Gynecology Comment on above: Annual Start: 08-25-2024 Urine microalbumin profile [facility] Start: 02-24-2024 End: 02-24-2024 Patient encounter procedure 02/24/2024 8:30 AM EST Office Visit [facility] [address] [place] [address] Aydin Cast MD [address] [place] [address] 18 year annual physical [facility] Comment on above: 18 year annual physi [place] Start: 02-19-2024 Anxiety Screening Anxiety Screening [facility] Start: 02-19-2024 Depression Screening Depression Scre ening [facility] Start: 02-07-2024 End: 02-07-2024 Patient encounter procedure 02/07/2024 10:00 AM EST Office Visit OB/Gynecology [address] [place] [address] Abeba Huggins APRN.DAIRY ASSOCIATE [address] [place] [address] Annual OB/Gynecology Comment on above: Annual Start: 11-03-2023 Covid-19 Vaccine ( season) Covid-19 Vaccine ( season) [facility] Start: 11-03-2023 Influenza vaccination Influenza Vacc ine (#1) [facility] Start: 03-02-2023 CHLAMYDIA SCREENING (18-24) CHLAMYDIA SCREENING (18-24) [facility] Start: 03-02-2023 GC (GONORRHEA) SCREE AVIAL (18-24) GC (GONORRHEA) SCREENING (18-24) [facility] Start: 03-02-2023 Screening for Chlamy donovan trachomatis Chlamydia Screening (18-) [facility] Start: 03-04-2022 DEPRESSION ASSESSMENT DEPRESSION ASS ESSMENT [facility] Start: 01-30-2022 End: 04-01-2022 Chlamydia trachomatis+Neisseria gonorrhoeae DNA [Presence] in Urine by RAMANDEEP with probe detection GC/CHLAMYDIA AMPLIF, URINE Microbiology Routine Screen for STD (sexually transmitted disease) Expected: 01/30/2022, Expires: 04/01/2022 [facility] Work Phone: Comment on above: Expected: 01/30/2022 , Expires: 04/01/2022 Start: 01-12-2022 Adult depression screening assessment DEPRESSION SCREENING [facility] Start: 01-11-2022 CHLAMYDIA SCREENING (18-24) CHLAMYDIA SCREENING (18-24) [facility] Start: 01-11-2022 GC (GONORRHEA) SCREE AVILA (18-24) GC (GONORRHEA) SCREENING (18-24) [facility] Start: 11-02-2021 Influenza vaccination INFLUENZA (#1) [facility] Start: 09-29-2021 HEPATITIS C SCREENING HEPATITIS C [facility] Start: 09-29-2021 Hepatitis C screening Hepatitis C [facility] Start: 09-29-2021 HIV SCREENING HIV SCREENING [facility] Start: 09-29-2021 HIV screening HIV Screening [facility] Start: 03-04-2021 DEPRESSION ASSESSMENT DEPRESSION ASS ESSMENT [facility] Start: 2019 Meningococcal B Vacc ine: Consider Based On Risk (1 of 2 - Patient Seeks Protection) Meningococcal B Vaccine: Consider Based On Risk (1 of 2 - Patient Seeks Protection) [facility] Start: 09-29-2017 PEDS TO ADULT TRANSI TION ANNUAL ASSESSMENT PEDS TO ADULT TRANSITION ANNUAL ASSESSMENT [facility] Start: 09-29-2013 MENINGOCOCCAL B: Consider based on risk (1 of 2 - Risk Bexsero 2-dose series) MENINGOCOCCAL B: Consider based on risk (1 of 2 - Risk Bexsero 2-dose series) [facility] Start: 04-01-2004 COVID-19 VACCINE (#1) COVID-19 VACCI NE (#1) [facility] End: 08-10-2023 ECG COMPLETE ECG COMPLETE ECG Routine Dizziness History of syncope 1 Occurrences starting 08/09/2022 until 08/10/2023 [facility] Work Phone: Comment on above: 1 Occurrences starti ng 08/09/2022 until 08/10/2023 Influenza virus A an d B RNA and SARS-CoV-2 (COVID-19) N gene panel - Respiratory specimen by RAMANDEEP with probe detection COVID WITH FLUA+B, ROUTINE Microbiology Routine Sore throat 05/23/2022 10:41 AM EDT [facility] Work Phone: RAPID STREP TEST B/O RAPID STREP TEST B/O Lab Routine Sore throat Ordered: 05/23/2022 [facility] Work Phone: Comment on above: Ordered: 05/23/2022 [facility] Immunizations Immunization Date Immunization Notes Care Provider Todd iverson 02-07-2024 influenza, seasonal, injectable Abeba Joseluis TOASTER OPERATOR.DAIRY ASSOCIATE Work Phone: [facility] 02-01-2023 influenza, injectabl e, quadrivalent, contains preservative Abeba Joseluis TOASTER OPERATOR.DAIRY ASSOCIATE Work Phone: [facility] 02-01-2023 influenza virus vacc ine, unspecified formulation Gerardo Jarrell APRN.[facility] Work Phone: [facility] 01-12-2021 influenza, injectabl e, quadrivalent, contains preservative Mary Solo [facility] 01-06-2020 influenza, injectabl e, quadrivalent, contains preservative Mary Solo [facility] 01-06-2020 meningococcal polysaccharide (groups A, C, Y and W-135) diphtheria toxoid conjugate vaccine (MCV4P) Mary Solo [facility] 12-10-2018 influenza, injectabl e, quadrivalent, preservative free Mary Solo [facility] 11-11-2017 influenza, injectabl e, quadrivalent, contains preservative Mary Solo [facility] 12-25-2016 influenza, injectabl e, quadrivalent, contains preservative Mayr Solo [facility] 01-31-2016 Human Papillomavirus 9-valent vaccine [facility]: 01-31-2016 influenza, injectabl e, quadrivalent, contains preservative Mary Solo [facility] Work Phone: 08-29-2015 Human Papillomavirus 9-valent vaccine [facility] 07-18-2015 Human Papillomavirus 9-valent vaccine [facility] 07-18-2015 meningococcal polysaccharide (groups A, C, Y and W-135) diphtheria toxoid conjugate vaccine (MCV4P) Mary Solo [facility] 08-25-2014 tetanus toxoid, redu elda diphtheria toxoid, and acellular pertussis vaccine, adsorbed [facility] Work Phone: 12-30-2013 influenza, live, intranasal, quadrivalent Mary Solo [facility] 12-25-2012 influenza virus vacc ine, live, attenuated, for intranasal use Mary Solo [facility] Work Phone: 10-01-2011 varicella virus vaccine [facility]: 12-02-2010 influenza virus vacc ine, live, attenuated, for intranasal use Mary Solo [facility] Work Phone: 01-24-2010 influenza virus vacc ine, live, attenuated, for intranasal use Mary Solo [facility] 12-21-2008 influenza virus vacc ine, live, attenuated, for intranasal use Mary Solo [facility] Work Phone: 02-04-2008 influenza virus vacc ine, live, attenuated, for intranasal use Mary Solo [facility] Work Phone: 10-01-2007 diphtheria, tetanus toxoids and acellular pertussis vaccine Mary Solo [facility] 10-01-2007 measles, mumps and rubella virus vaccine Mary Solo [facility] 10-01-2007 poliovirus vaccine, inactivated Mary Solo [facility] 01-24-2007 influenza virus vacc ine, unspecified formulation Mary Solo [facility] Work Phone: 01-03-2005 diphtheria, tetanus toxoids and acellular pertussis vaccine [facility] Work [facility]: 01-03-2005 haemophilus influenz ae type b vaccine, HbOC conjugate [facility] Work Phone: 01-03-2005 influenza virus vacc ine, unspecified formulation [facility] Work Phone: 10-04-2004 haemophilus influenz ae type b vaccine, HbOC conjugate [facility] Work Phone: 10-04-2004 measles, mumps and rubella virus vaccine Mary Solo [facility] Work Phone: 10-04-2004 pneumococcal conjuga te vaccine, 7 valent Mary Solo [facility] Work Phone: 10-04-2004 varicella virus vaccine Mary Solo [facility] Work Phone: 03-30-2004 DTaP-hepatitis B and poliovirus vaccine Mary Solo [facility] Work Phone: 03-30-2004 influenza virus vacc ine, unspecified formulation Mary Solo [facility] Work Phone: 03-30-2004 pneumococcal conjuga te vaccine, 7 valent Mary Solo RN [facility] Work Phone: 02-02-2004 DTaP-hepatitis B and poliovirus vaccine Mary Solo RN [facility] Work Phone: 02-02-2004 haemophilus influenz ae type b vaccine, HbOC conjugate Mary Solo RN [facility] Work Phone: 02-02-2004 pneumococcal conjuga te vaccine, 7 valent Mary Solo RN [facility] Work Phone: 2003 DTaP-hepatitis B and poliovirus vaccine Mary Solo RN [facility] Work Phone: 2003 haemophilus influenz ae type b vaccine, HbOC conjugate Mary Solo [facility] Work Phone: 2003 pneumococcal conjuga te vaccine, 7 valent Mary Solo [facility] Work Phone: 2003 hepatitis B vaccine, pediatric or pediatric/adolescent dosage Mary Solo [facility] Work Phone: Payers Date Payer Category Payer Self-pay 2014 Private Health Insurance [facility] PLUS [id number] 2014-Present [phone] [address] [address] [place] [address] O [id number] 2014 Unknown [id number] Unknown [id number] Unknown [id number] Social History Date Type Detail Facility Start: 06-04-2011 End: 08-09-2022 Tobacco smoking status NHIS Never smoked tobacco [facility] Start: 06-04-2011 End: 08-09-2022 Tobacco use and exposure Smokeless tobacco non-user [facility] Start: 01-12-2021 End: 02-07-2024 Alcohol intake Current non-drinker of alcohol (finding) [facility] Start: 2003 Sex Assigned At Not on file [facility] Start: 2021 End: 10-11-2021 Exposure to SARS-CoV-2 (event) Not sure [facility] Start: 08-09-2022 End: 02-01-2023 History of Social function [facility] Start: 08-09-2022 End: 02-01-2023 Tobacco use panel [facility] National Score (1-10 0), lower number is lower risk 71 [facility] Has the [employer], or [employer] threatened to shut off services in your home in past 12Mo No [facility] Are you now , , , , never or living with a partner? Never [facility] How often to you hav e a drink containing alcohol? Never [facility] Do you feel stress - tense, restless, nervous, or anxious, or unable to sleep at night because your mind is troubled all the time - these days [OSQ] To some extent [facility] (I/We) worried [facility] (my/our) food would run out before (I/we) got money to buy more. Never true [facility] NEGATED: Highlighted rowStart: JEANNETTE History of tobacco use Passive smoker [facility] Clinical Notes 10-10-2021 to 02-07-2024 Abeba Huggins APRN.DAIRY ASSOCIATE - 02/07/2024 9:53 AM Gerardo Lazar APRN.DAIRY ASSOCIATE - 02/05/2024 1:18 PM ESTPatient InstructionsEneida Saldivar MD - 02/18/2023 8:10 AM EST Note Date & Type Note Facility 02-07-2024 History of Present illness Narrative Leonard is a 18 year old who presents for an annual gynecologic exam without complaints. Presents: alone Menses: cycles every 28-30 days and 5 days of flow. Contraception: combined hormonal contraceptives HPV vaccine: Yes Last pap smear: never Sexually active: Yes Patient concerns for STD exposure: No. Pain with intercourse: No Postcoital bleeding: No OB History T0 L0 SAB0 IAB0 Ectopic0 Multiple0 Live Births0 [employer] History LMP: 02/16/2023 (Exact Date), Having periods Age at Menarche: Age at First : Age at Menopause: [employer] Neg[employer] History Comments: Sexual Activity: Yes; Male Contraception: Pill PAST MEDICAL HISTORY Diagnosis Date Infected sebaceous cyst Menstrual cycle disorder 09/2015 Age 10 PMH - PAST MEDICAL HISTORY OF recurrent ear infections PMH - PAST MEDICAL HISTORY OF 09/2008 normal color vision PAST SURGICAL HISTORY Procedure Laterality Date ADENOIDECTOMY UNDER AGE 12 SUTURES -SPECIFY above right eyebrow around age 2 years TYMPANOSTOMY LOCAL/TOPICAL ANESTHESIA 10/16/2004 procedure done twice and has had adenoids out FAMILY HISTORY Problem Relation Age of Onset Hypothyroidism Mother No Known Problems Father No Known Problems Sister No Known Problems Brother No Known Problems Brother No Known Problems Maternal Grandmother other (stomach anuerysm) Paternal Grandfather Heart Other PATERNAL & MATERNAL SIDE Diabetes Other PATERNAL & MATERNAL SIDE Cancer Other PATERNAL SIDE other (KIDNEY) Other MATERNAL SIDE SOCIAL HISTORY Social History Tobacco Use Smoking status: Never Passive exposure: Never Smokeless tobacco: Never Vaping Use Vaping status: Never Used Substance Use Topics Alcohol use: No Drug use: No REVIEW OF SYSTEMS Abdomen: No bloating, early satiety, indigestion, or increased flatulence. No abdominal pain, nausea, vomiting, diarrhea, or constipation. Bladder: No dysuria, gross hematuria, urinary frequency, urinary urgency, or incontinence. Breast: No breast lumps, nipple d/c, overlying skin changes, redness or skin retraction. Allergies and current medication updated:Yes SENSITIVE EXAM: Sensitive exam not performed. EXAM: LMP 02/16/2023 GENERAL: pleasant, in no apparent distress HEENT: Normocephalic, atraumatic, mucus membranes moist, and no lesions CHEST: Normal inspiratory effort NEURO: alert and oriented x3,exam grossly non-focal EXTREMITIES: normal ASSESSMENT/PLAN: 1) Health maintenance: Pap starting at the age of 21. Safe sex practices reviewed. Nutrition, exercise, and routine health maintenance exams reviewed. HPV vaccine completed series.. 2) Contraception: combined hormonal contraceptives. Contraceptive options reviewed and information provided. 3) STD screening: Declined STD check. 4) Follow up one year or sooner as needed. 5) Flu vaccine today Abeba Huggins APRN.MICHAEL documented in this encounter [facility] 02-05-2024 History of Present illness Narrative Subjective HPI HPI Leonard Villegas is a 18 year old female who presents today for CC of st, congestion. This started 1 day ago. Has tried otc medication without relief. Symptoms are worsened by nothing. Risk factors sick exposures at home and work. .Patient presents with: Sore Throat: ST and sinus congestion x 1 day PAST MEDICAL HISTORY Diagnosis Date Infected sebaceous cyst Menstrual cycle disorder 09/2015 Age 10 PMH - PAST MEDICAL HISTORY OF recurrent ear infections PMH - PAST MEDICAL HISTORY OF 09/2008 normal color vision PAST SURGICAL HISTORY Procedure Laterality Date ADENOIDECTOMY UNDER AGE 10 SUTURES -SPECIFY above right eyebrow around age 2 years TYMPANOSTOMY LOCAL/TOPICAL ANESTHESIA 10/16/2004 procedure done twice and has had adenoids out ALLERGIES Omnicef [Cefdinir] and Zithromax [Azithromycin] MEDICATIONS rizatriptan (MAXALT) 5 mg tablet Take 1 tablet (5 mg) by mouth as needed for migraine headache (see administration instructions). May repeat dose after 2 hours if needed. Maximum daily dose is 30 mg per day. Drospirenone-Ethinyl Estradiol (VESTURA, 28,) 3-0.02 mg per tablet Take 1 tablet by mouth once daily. TAKE ACTIVE PILLS ONLY. FOR CONTINUOUS USE. predniSONE (DELTASONE) 20 mg tablet Take 2 tablets by mouth once daily for 5 days. FAMILY HISTORY Problem Relation Age of Onset Hypothyroidism Mother No Known Problems Father No Known Problems Sister No Known Problems Brother No Known Problems Brother No Known Problems Maternal Grandmother other (stomach anuerysm) Paternal Grandfather Heart Other PATERNAL & MATERNAL SIDE Diabetes Other PATERNAL & MATERNAL SIDE Cancer Other PATERNAL SIDE other (KIDNEY) Other MATERNAL SIDE Social History Tobacco Use Smoking status: Never Passive exposure: Never Smokeless tobacco: Never Vaping Use Vaping status: Never Used Substance Use Topics Alcohol use: No Drug use: No Review of Systems Constitutional: Negative for fever. HENT: Positive for congestion and sore throat. Negative for ear pain and nosebleeds. Respiratory: Negative for cough, shortness of breath and wheezing. Musculoskeletal: Negative for neck pain. Skin: Negative for itching and rash. Objective Blood pressure 122/62, pulse 77, temperature 36.3 C (97.3 F), temperature source Tympanic, resp. rate 18, weight 57.6 kg (126 lb 15.8 oz), last menstrual period 02/16/2023, SpO2 98%. Physical Exam Constitutional: General: She is not in acute distress. Appearance: She is not toxic-appearing or diaphoretic. HENT: Head: Normocephalic and atraumatic. Right Ear: Hearing, tympanic membrane, ear canal and external ear normal. Left Ear: Hearing, tympanic membrane, ear canal and external ear normal. Nose: Nose normal. Mouth/Throat: Lips: [place]. Mouth: Mucous membranes are moist. Pharynx: Uvula midline. Posterior oropharyngeal erythema present. No pharyngeal swelling, oropharyngeal exudate or uvula swelling. Eyes: General: Lids are normal. No scleral icterus. Right eye: No discharge. Left eye: No discharge. Conjunctiva/sclera: Conjunctivae normal. Pupils: Pupils are equal, round, and reactive to light. Neck: Trachea: Trachea normal. Cardiovascular: Rate and Rhythm: Normal rate and regular rhythm. Heart sounds: Normal heart sounds. Pulmonary: Effort: Pulmonary effort is normal. Breath sounds: Normal breath sounds. Musculoskeletal: Cervical back: Normal range of motion and neck supple. Lymphadenopathy: Cervical: No cervical adenopathy. Right cervical: No superficial cervical adenopathy. Left cervical: No superficial cervical adenopathy. Skin: Findings: No rash. Neurological: Mental Status: She is alert and oriented to person, place, and time. ASSESSMENT/PLAN: 1. Sore throat - ICD9: 462, ICD10: J02.9 - suspect viral - Group A strep molecular testing negative - Discussed supportive care treatment with fluids, rest and analgesia. - The patient should follow up in 3-5 days if symptoms persist or worsen - STREP A MOLECULAR (POC) - PREDNISONE 20 MG TABLET Gerardo Jarrell APRN.MICHAEL documented in this encounter [facility] 02-18-2023 Instructions Eneida Saldivar MD - 02/18/2023 8:55 AM EST Images from the original note were not included. 5 to Go!TM Healthy Kids Inside & Out 5 Eat FIVE fruits and veggies a day 4 Give and get FOUR compliments a day 3 Consume THREE calcium products a day 2 Limit media time to TWO hours a day 1 Get at least ONE hour of exercise a day 0 Consume ZERO sugar-sweetened drinks Go! Be healthy, inside and out! [email or web address] Adolescent to Adult Transition Program [facility] cares about helping you and each of our adolescents and young adults make a smooth transition to adult care. If your current doctor is a sterile process coordinator, we will work with you to decide the correct age for moving your care to a doctor or other provider who takes care of adults. We suggest that this move take place before age 22. Our office policy is to prepare you to move to a doctor or other provider who takes care of adults. This includes helping you find a doctor or other provider, sending medical records, and talking about any special needs with the new doctor or other provider. If your current doctor is in family medicine, [facility] will prepare you and your family for the transition to being an adult patient. You will be able to make your own healthcare decisions and will have an adult care team that meets your personal healthcare needs. At age 18, by law, we need your agreement to discuss personal health information with your family. We understand and respect that you may want to include your family in healthcare choices and will partner with you on how and when to include your family in decisions. We will make sure you know what changes to expect. We will also strive to make sure that all care team providers know your needs. We will help you find community resources and specialty care, if needed. Having your information before you come for the first time helps us be sure we do not miss any details. If joining our practice from outside [facility], we will help you request your medical record from past doctor(s) before your first visit. We will make every effort to work with your past providers to ensure a smooth transition and experience. We are always here for you. If you have any questions or concerns, please contact your primary care team or e-mail Got Transition is the federally funded national resource center on health care transition (HCT). Its aim is to improve transition from pediatric to adult health care through the use of evidence-driven strategies for health care process manager, youth, young adults, and their families. www.gottransition.org [email or web address] documented in this encounter [facility] 02-18-2023 History of Present illness Narrative WELL VISIT PEDIATRIC 18+ YRS OLD Leonard is a 17 year old who presents today for well exam. SUBJECTIVE CONCERNS: Frequent ROBBINS, 3-4 per week. ? Migraines Migraines: Takes ibuprofen and advil One in morning and evening Last for 1.5 days Once per week they are significant and ibuprofen doesn't seem to help, exacerbated by school and stress Bilateral temples Pounding, 7-10/11 Mom had migraines when she was younger Patient had a pre-syncope episode while talking about episode Suddenly felt faint, dizzy, and hot No chest pain or palpitations Symptoms improved with laying flat on exam table and hydration Vitals stable throughout HISTORY ACTIVE PROBLEM LIST Infected Sebaceous Cyst - 09/28/2015 PAST MEDICAL HISTORY Diagnosis Date Infected sebaceous cyst Menstrual cycle disorder 09/2015 Age 10 PMH - PAST MEDICAL HISTORY OF recurrent ear infections PMH - PAST MEDICAL HISTORY OF 09/2008 normal color vision PAST SURGICAL HISTORY Procedure Laterality Date ADENOIDECTOMY UNDER AGE 10 SUTURES -SPECIFY above right eyebrow around age 2 years TYMPANOSTOMY LOCAL/TOPICAL ANESTHESIA 10/16/2004 procedure done twice and has had adenoids out ALLERGIES Allergen Reactions Omnicef [Cefdinir] Hives Zithromax [Azithrom* Hives Medications: Drospirenone-Ethinyl Estradiol (VESTURA, 28,) 3-0.02 mg per tablet Take 1 tablet by mouth once daily. TAKE ACTIVE PILLS ONLY. FOR CONTINUOUS USE. rizatriptan (MAXALT) 5 mg tablet Take 1 tablet (5 mg) by mouth as needed for migraine headache (see administration instructions). May repeat dose after 2 hours if needed. Maximum daily dose is 30 mg per day. FAMILY HISTORY Problem Relation Age of Onset Hypothyroidism Mother No Known Problems Father No Known Problems Sister No Known Problems Brother No Known Problems Brother No Known Problems Maternal Grandmother other (stomach anuerysm) Paternal Grandfather Heart Other PATERNAL & MATERNAL SIDE Diabetes Other PATERNAL & MATERNAL SIDE Cancer Other PATERNAL SIDE other (KIDNEY) Other MATERNAL SIDE Social History Social History Narrative Not on file Smoking Exposure: Do you spend a significant amount of time with anyone who smokes? No School: Presently in College. No academic or school related concerns No behavioral concerns Any concerns regarding peer interactions? No Physical Activity: more than 1 hour of physical activity per day Recreational Screen Time totaling more than 2 hours of screen time per day. Fainting, dizziness, significant shortness of breath or chest pain with sports or exercise: No History of concussion in the last year: No Safety: Reviewed seat belts, bike helmets, and smoke detectors Diet: -Diet is well balanced and appropriate for age -Fruits and veggies are eaten with most meals -Drinks water daily -Regularly eats meals with family Elimination: no concerns, normal size and consistency Dental: dental care current Sleep: -no sleep concerns Vision: No vision concerns Hearing: No hearing concerns Growth: No growth concerns Gynecological history: LMP: 02/16/23 Cycles are regular and last 5 days. Dysmenorrhea: none Heavy periods: no Substance use: none Sexual History: Attraction: male Sexually Active: Yes Body image: satisfactory Screening tools reviewed and discussed with patient/uyuivf-OYS-2 and Social Determinants of Health. Please see Patient Entered Data. SDOH: Food Insecurity: No Food Insecurity (02/18/2023) Hunger Vital Sign Worried About Running Out of Food in the Last Year: Never true Ran Out of Food in the Last Year: Never true Financial Resource Strain: Not on file Transportation Needs: No Transportation Needs (02/18/2023) PRAPARE - Transportation Lack of Transportation (Medical): No Lack of Transportation (Non-Medical): No Housing Stability: Low Risk (02/18/2023) Housing Stability Vital Sign Unable to Pay for Housing in the Last Year: No Number of Places Lived in the Last Year: 1 Unstable Housing in the Last Year: No Discussed SDOH results with patient/family. SDOH needs identified: no concerns identified OBJECTIVE Physical Exam: BP 104/66 Pulse 80 Temp 36.5 C (97.7 F) (Temporal) Resp 16 Ht 166.6 cm (5' 5.59) Wt 57.7 kg (127 lb 3.2 oz) LMP 02/16/2023 (Exact Date) BMI 20.79 kg/m Blood pressure %son are not available for patients who are 18 years or older. Blood pressure %son are not available for patients who are 18 years or older. 39 %ile (Z= -0.27) based on CDC (Girls, 2-20 Years) BMI-for-age based on BMI available as of 02/18/2023. Last BMI: Wt: 58.7 kg (129 lb 6.4 oz) (54%, Z= 0.10)* BMI: 21.53 kg/(m^2) Last 4 Encounter Wt Readings: Date: Wt: 02/01/2023 58.7 kg (129 lb 6.4 oz) (54%, Z= 0.10)* 08/09/2022 58.5 kg (129 lb) (56%, Z= 0.14)* 05/23/2022 56.2 kg (124 lb) (47%, Z= -0.07)* 01/30/2022 58.1 kg (128 lb) (56%, Z= 0.16)* Last 4 Encounter Ht Readings: Date: Ht: 02/01/2023 165.1 cm (5' 5) (61%, Z= 0.28)* 01/30/2022 165.1 cm (5' 5) (62%, Z= 0.30)* 01/12/2021 167.1 cm (5' 5.79) (74%, Z= 0.64)* 01/11/2021 167.6 cm (5' 6) (76%, Z= 0.72)* General: Well developed, No acute distress Head: normocephalic Eyes: conjunctivae/corneas clear Ears: normal external ear and canal, tympanic membranes with normal landmarks Nose: no erythema or rhinorrhea Oropharynx: moist mucous membranes, no erythema or exudate Neck: supple, no adenopathy Spine: Back symmetric, no curvature. Resp: lungs clear to auscultation Heart: RRR, normal S1 and S2. , No murmurs Abdomen: Soft, nontender, nondistended, no palpable organomegaly or masses, normal bowel sounds Extremities: Full ROM and no swelling, erythema or tenderness Neuro: No focal deficits or abnormal findings present Skin: no rashes ASSESSMENT & PLAN Encounter Diagnosis ICD-10-CM 1. Encounter for general adult medical examination without abnormal findings Z00.00 2. Migraine without aura and without status migrainosus, not intractable G43.009 rizatriptan (MAXALT) 5 mg tablet 3. Pre-syncope R55 4. Encounter for screening for depression Z13.31 39 %ile (Z= -0.27) based on CDC (Girls, 2-20 Years) BMI-for-age based on BMI available as of 02/18/2023. Leonard is healthy range (BMI 5th% - 84th%): -To maintain a healthy weight, discussed limiting screen time to less than 2 hours per day, physical activity for at least one hour per day, 5 servings of fruits and vegetables per day, 3 meals per day, family meals ar home and no sugar containing beverages Depression Screening 02/18/2023 PHQ-2 Score 0 PHQ-9 Score 2 Based on score and interview, presentation is not consistent with depression. - Discussed diet and safety. - Dental care discussed. - [employer] handout given (See Patient Instructions). - No immunizations were recommended to be given at this visit. - Leonard is Cleared for all sports without restriction. If conditions arise after the athlete has been cleared for participation the provider may rescind the medical eligibility. - Healthcare transition statement discussed.. - Follow up in one year for routine physical. Migraines: -Increased water intake -Reviewed sleep hygiene and stress management -Maxalt as prescribed -Follow up in 1-2 months, start migraine diary Pre-Syncope: -Appears situational. Has occurred two previous times, one at urgent care and one at check up with Nirmal -Nirmal obtained thorough evaluation at visit in August, reviewed work up with mom and patient -Return if symptoms recur, begin occuring at other times Eneida Saldivar MD documented in this encounter [facility] 02-01-2023 Note HNO ID: [id number] Author: Abeba Huggins APRN.DAIRY ASSOCIATE Service: ? Author Type: Nurse Practitioner Type: Progress Notes Filed: 02/01/2023 9:36 AM Note Text: Leonard is a 17 year old No obstetric history on file. who presents for an annual gynecologic exam without complaints. Presents: alone Menses: cycles every 28-30 days and 5 days of flow. Contraception: combined hormonal contraceptives HPV vaccine: Yes Last pap smear: never Sexually active: Yes Patient concerns for STD exposure: No. Same partner for 1.5 yrs Pain with intercourse: No Postcoital bleeding: No OB History No obstetric history on file. Credit Negotiator History LMP: 07/19/2022 (Approximate), Having periods Age at Menarche: Age at First : Age at Menopause: Credit Negotiator History Comments: Sexual Activity: Yes; Male Contraception: Pill PAST MEDICAL HISTORY Diagnosis Date Infected sebaceous cyst Menstrual cycle disorder 09/2015 Age 10 PMH - PAST MEDICAL HISTORY OF recurrent ear infections PMH - PAST MEDICAL HISTORY OF 09/2008 normal color vision PAST SURGICAL HISTORY Procedure Laterality Date ADENOIDECTOMY UNDER AGE 10 SUTURES -SPECIFY above right eyebrow around age 2 years TYMPANOSTOMY LOCAL/TOPICAL ANESTHESIA 10/16/2004 procedure done twice and has had adenoids out FAMILY HISTORY Problem Relation Age of Onset Hypothyroidism Mother No Known Problems Father No Known Problems Sister No Known Problems Brother No Known Problems Brother No Known Problems Maternal Grandmother other (stomach anuerysm) Paternal Grandfather Heart Other PATERNAL AND MATERNAL SIDE Diabetes Other PATERNAL AND MATERNAL SIDE Cancer Other PATERNAL SIDE other (KIDNEY) Other MATERNAL SIDE SOCIAL HISTORY Social History Tobacco Use Smoking status: Never Passive exposure: Never Smokeless tobacco: Never Vaping Use Vaping Use: Never used Substance Use Topics Alcohol use: No Drug use: No REVIEW OF SYSTEMS Abdomen: No bloating, early satiety, indigestion, or increased flatulence. No abdominal pain, nausea, vomiting, diarrhea, or constipation. Bladder: No dysuria, gross hematuria, urinary frequency, urinary urgency, or incontinence. Breast: No breast lumps, nipple d/c, overlying skin changes, redness or skin retraction. Allergies and current medication updated:Yes EXAM: LMP 07/19/2022 GENERAL: pleasant, in no apparent distress HEENT: Normocephalic, atraumatic, mucus membranes moist, and no lesions CHEST: Normal inspiratory effort NEURO: alert and oriented x3,exam grossly non-focal EXTREMITIES: normal ASSESSMENT/PLAN: 1) Health maintenance: Pap starting at the age of 21. Safe sex practices reviewed. HPV vaccine completed series.. 2) Contraception: combined hormonal contraceptives. Contraceptive options reviewed and information provided. 3) STD screening: Declined STD check. 4) Follow up one year or sooner as needed. Abeba Huggins APRN.[facility] 02-01-2023 History of Present illness Narrative Leonard is a 17 year old No obstetric history on file. who presents for an annual gynecologic exam without complaints. Presents: alone Menses: cycles every 28-30 days and 5 days of flow. Contraception: combined hormonal contraceptives HPV vaccine: Yes Last pap smear: never Sexually active: Yes Patient concerns for STD exposure: No. Same partner for 1.5 yrs Pain with intercourse: No Postcoital bleeding: No OB History No obstetric history on file. Credit Negotiator History LMP: 07/19/2022 (Approximate), Having periods Age at Menarche: Age at First : Age at Menopause: Credit Negotiator History Comments: Sexual Activity: Yes; Male Contraception: Pill PAST MEDICAL HISTORY Diagnosis Date Infected sebaceous cyst Menstrual cycle disorder 09/2015 Age 10 PMH - PAST MEDICAL HISTORY OF recurrent ear infections PMH - PAST MEDICAL HISTORY OF 09/2008 normal color vision PAST SURGICAL HISTORY Procedure Laterality Date ADENOIDECTOMY UNDER AGE 10 SUTURES -SPECIFY above right eyebrow around age 2 years TYMPANOSTOMY LOCAL/TOPICAL ANESTHESIA 10/16/2004 procedure done twice and has had adenoids out FAMILY HISTORY Problem Relation Age of Onset Hypothyroidism Mother No Known Problems Father No Known Problems Sister No Known Problems Brother No Known Problems Brother No Known Problems Maternal Grandmother other (stomach anuerysm) Paternal Grandfather Heart Other PATERNAL & MATERNAL SIDE Diabetes Other PATERNAL & MATERNAL SIDE Cancer Other PATERNAL SIDE other (KIDNEY) Other MATERNAL SIDE SOCIAL HISTORY Social History Tobacco Use Smoking status: Never Passive exposure: Never Smokeless tobacco: Never Vaping Use Vaping Use: Never used Substance Use Topics Alcohol use: No Drug use: No REVIEW OF SYSTEMS Abdomen: No bloating, early satiety, indigestion, or increased flatulence. No abdominal pain, nausea, vomiting, diarrhea, or constipation. Bladder: No dysuria, gross hematuria, urinary frequency, urinary urgency, or incontinence. Breast: No breast lumps, nipple d/c, overlying skin changes, redness or skin retraction. Allergies and current medication updated:Yes EXAM: LMP 07/19/2022 GENERAL: pleasant, in no apparent distress HEENT: Normocephalic, atraumatic, mucus membranes moist, and no lesions CHEST: Normal inspiratory effort NEURO: alert and oriented x3,exam grossly non-focal EXTREMITIES: normal ASSESSMENT/PLAN: 1) Health maintenance: Pap starting at the age of 21. Safe sex practices reviewed. HPV vaccine completed series.. 2) Contraception: combined hormonal contraceptives. Contraceptive options reviewed and information provided. 3) STD screening: Declined STD check. 4) Follow up one year or sooner as needed. Abeba Huggins APRN.CNP documented in this encounter [facility] 08-09-2022 Note HNO ID: [id number] Author: Nirmal Smiley APRN.CNP Service: ? Author Type: Nurse Practitioner Type: Progress Notes Filed: 08/15/2022 5:38 PM Note Text: PEDIATRIC SICK VISIT SUBJECTIVE: Leonard Villegas is a 16 year old accompanied by mother. Patient presents with: Dizzy spells : Has been having dizzy spells since she had strep throat on 05/23/2022. Reporting that she had syncope while in express care being seen for strep throat, denies any other syncope. Dizzy spells almost daily, but not every single day. Episodes are very short only a few seconds in length, happens with exercise at the gym and at work more often. 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 Had moment at [employer] recently when her heart was racing and she felt like she couldn't take a deep breath History was obtained from: patient Current symptoms: FEVER: not present at this time EYE SYMPTOMS: not present at this time NASAL CONGESTION: not present at this time EAR SYMPTOMS: not present at this time COUGH: not present at this time SORE THROAT: not present at this time HEADACHE: not present at this time VOMITING: not present at this time NAUSEA: not present at this time DIARRHEA: not present at this time ABDOMINAL PAIN: not present at this time RASH: not present at this time GENERAL: Activity level at child's baseline Appetite: no significant change Sick contacts: No known sick contacts HISTORY: ACTIVE PROBLEM LIST Infected Sebaceous Cyst PAST MEDICAL HISTORY Diagnosis Date - Infected sebaceous cyst - Menstrual cycle disorder 09/2015 Age 10 - PMH - PAST MEDICAL HISTORY OF recurrent ear infections - PMH - PAST MEDICAL HISTORY OF 09/2008 normal color vision PAST SURGICAL HISTORY Procedure Laterality Date - ADENOIDECTOMY UNDER AGE 10 - SUTURES -SPECIFY above right eyebrow around age 2 years - TYMPANOSTOMY LOCAL/TOPICAL ANESTHESIA 10/16/2004 procedure done twice and has had adenoids out Allergies: ALLERGIES Allergen Reactions - Omnicef [Cefdinir] Hives - Zithromax [Azithrom* Hives Medications: - Drospirenone-Ethinyl Estradiol (VESTURA, 28,) 3-0.02 mg per tablet Take 1 tablet by mouth once daily. TAKE ACTIVE PILLS ONLY. FOR CONTINUOUS USE. OBJECTIVE: BP 110/74 Pulse 84 Temp 36.7 ?C (98.1 ?F) (Temporal Artery) Resp 12 Wt 58.5 kg (129 lb) LMP 07/19/2022 (Approximate) General: well appearing, alert and active in no apparent distress Eyes: conjunctiva clear, PERRL Ears: TMs translucent bilaterally, normal landmarks noted Nose: no rhinorrhea, no mucosal edema OP: no lesions, no erythema, moist mucous membranes Neck: supple, no adenopathy Lungs: clear to auscultation bilaterally, good air exchange, no retractions, no wheezes or crackles CVS: Normal rate, regular rhythm, no murmur Abdomen: soft, nondistended, nontender, no hepatosplenomegaly or masses, and no rebound or guarding Skin: No rashes, lesions or skin changes Neuro: No focal deficits or abnormal findings present ASSESSMENT/PLAN: Encounter Diagnosis ICD-10-CM 1. Dizziness R42 CBC + DIFF COMP METABOLIC PANEL FERRITIN BLD TSH BLD T4 FREE/FREE THYROX ECG COMPLETE 2. History of syncope Z87.898 CBC + DIFF COMP METABOLIC PANEL FERRITIN BLD TSH BLD T4 FREE/FREE THYROX ECG COMPLETE - EKG normal in office. Consulted with Dr. Cast. Pending final reading by cardiology. - Orthostatic vitals not consistent with orthostatic hypotension or POTS. - Labs ordered and results pending. - Likely vasovagal syncope - Discussed importance of regular hydration, adequate salt intake, eating regularly. May trial compression stockings. - Return to clinic for persistent or worsening symptoms, as needed based on lab results, or for any concerns. Medical Decision Making: Problems: Moderate: New problem with uncertain prognosis Data: Unique test(s) ordered: 3+ Risk: Low: Low risk from testing/treatment Medical Decision Making Level: 4 - Moderate [facility] 08-09-2022 History of Present illness Narrative PEDIATRIC SICK VISIT SUBJECTIVE: Leonard Villegas is a 16 year old accompanied by mother. Patient presents with: Dizzy spells : Has been having dizzy spells since she had strep throat on 05/23/2022. Reporting that she had syncope while in express care being seen for strep throat, denies any other syncope. Dizzy spells almost daily, but not every single day. Episodes are very short only a few seconds in length, happens with exercise at the gym and at work more often. 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 Had moment at [employer] recently when her heart was racing and she felt like she couldn't take a deep breath History was obtained from: patient Current symptoms: FEVER: not present at this time EYE SYMPTOMS: not present at this time NASAL CONGESTION: not present at this time EAR SYMPTOMS: not present at this time COUGH: not present at this time SORE THROAT: not present at this time HEADACHE: not present at this time VOMITING: not present at this time NAUSEA: not present at this time DIARRHEA: not present at this time ABDOMINAL PAIN: not present at this time RASH: not present at this time GENERAL: Activity level at child's baseline Appetite: no significant change Sick contacts: No known sick contacts HISTORY: ACTIVE PROBLEM LIST Infected Sebaceous Cyst PAST MEDICAL HISTORY Diagnosis Date Infected sebaceous cyst Menstrual cycle disorder 09/2015 Age 10 PMH - PAST MEDICAL HISTORY OF recurrent ear infections PMH - PAST MEDICAL HISTORY OF 09/2008 normal color vision PAST SURGICAL HISTORY Procedure Laterality Date ADENOIDECTOMY UNDER AGE 10 SUTURES -SPECIFY above right eyebrow around age 2 years TYMPANOSTOMY LOCAL/TOPICAL ANESTHESIA 10/16/2004 procedure done twice and has had adenoids out Allergies: ALLERGIES Allergen Reactions Omnicef [Cefdinir] Hives Zithromax [Azithrom* Hives Medications: Drospirenone-Ethinyl Estradiol (VESTURA, 28,) 3-0.02 mg per tablet Take 1 tablet by mouth once daily. TAKE ACTIVE PILLS ONLY. FOR CONTINUOUS USE. OBJECTIVE: BP 110/74 Pulse 84 Temp 36.7 C (98.1 F) (Temporal Artery) Resp 12 Wt 58.5 kg (129 lb) LMP 07/19/2022 (Approximate) General: well appearing, alert and active in no apparent distress Eyes: conjunctiva clear, PERRL Ears: TMs translucent bilaterally, normal landmarks noted Nose: no rhinorrhea, no mucosal edema OP: no lesions, no erythema, moist mucous membranes Neck: supple, no adenopathy Lungs: clear to auscultation bilaterally, good air exchange, no retractions, no wheezes or crackles CVS: Normal rate, regular rhythm, no murmur Abdomen: soft, nondistended, nontender, no hepatosplenomegaly or masses, and no rebound or guarding Skin: No rashes, lesions or skin changes Neuro: No focal deficits or abnormal findings present ASSESSMENT/PLAN: Encounter Diagnosis ICD-10-CM 1. Dizziness R42 CBC + DIFF COMP METABOLIC PANEL FERRITIN BLD TSH BLD T4 FREE/FREE THYROX ECG COMPLETE 2. History of syncope Z87.898 CBC + DIFF COMP METABOLIC PANEL FERRITIN BLD TSH BLD T4 FREE/FREE THYROX ECG COMPLETE - EKG normal in office. Consulted with Dr. Cast. Pending final reading by cardiology. - Orthostatic vitals not consistent with orthostatic hypotension or POTS. - Labs ordered and results pending. - Likely vasovagal syncope - Discussed importance of regular hydration, adequate salt intake, eating regularly. May trial compression stockings. - Return to clinic for persistent or worsening symptoms, as needed based on lab results, or for any concerns. Medical Decision Making: Problems: Moderate: New problem with uncertain prognosis Data: Unique test(s) ordered: 3+ Risk: Low: Low risk from testing/treatment Medical Decision Making Level: 4 - Moderate documented in this encounter [facility] 05-23-2022 Note HNO ID: [id number] Author: Catherine Coon APRN.MICHAEL Service: ? 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 She states she has not had a fever, she is eating and drinking well, and denies rash at this time, Feeling very lightheaded as heading to bathroom, pt legs elevated, cool washwrag to head, she has not eaten, juice and water provided, states feels back to her self. Boyfriend called to drive her home, she is aware if this happens again report to ED PAST MEDICAL HISTORY Diagnosis Date Infected sebaceous cyst Menstrual cycle disorder 09/2015 Age 10 PMH - PAST MEDICAL HISTORY OF recurrent ear infections PMH - PAST MEDICAL HISTORY OF 09/2008 normal color vision PAST SURGICAL HISTORY Procedure Laterality Date ADENOIDECTOMY UNDER AGE 10 SUTURES -SPECIFY above right eyebrow around age 2 years TYMPANOSTOMY LOCAL/TOPICAL ANESTHESIA 10/16/2004 procedure done twice and has had adenoids out ALLERGIES Omnicef [Cefdinir] and Zithromax [Azithromycin] MEDICATIONS Drospirenone-Ethinyl Estradiol (VESTURA, 28,) 3-0.02 mg per tablet Take 1 tablet by mouth once daily. TAKE ACTIVE PILLS ONLY. FOR CONTINUOUS USE. amoxicillin (AMOXIL) 500 mg capsule Take 1 capsule by mouth twice daily for 10 days. FAMILY HISTORY Problem Relation Age of Onset Hypothyroidism Mother No Known Problems Father No Known Problems Sister No Known Problems Brother No Known Problems Brother No Known Problems Maternal Grandmother other (stomach anuerysm) Paternal Grandfather Heart Other PATERNAL AND MATERNAL SIDE Diabetes Other PATERNAL AND MATERNAL SIDE Cancer Other PATERNAL SIDE other (KIDNEY) Other MATERNAL SIDE Social History Tobacco Use Smoking status: Never Smokeless tobacco: Never Vaping Use Vaping Use: Never used Substance Use Topics Alcohol use: No Drug use: No Review of Systems HENT: Positive for sore throat. Objective Physical Exam Constitutional: Appearance: Normal appearance. HENT: Head: Normocephalic and atraumatic. Nose: Congestion present. Mouth/Throat: Mouth: Mucous membranes are dry. Pharynx: Posterior oropharyngeal erythema present. No oropharyngeal exudate. Eyes: Extraocular Movements: Extraocular movements intact. Pupils: Pupils are equal, round, and reactive to light. Cardiovascular: Rate and Rhythm: Normal rate and regular rhythm. Pulses: Normal pulses. Heart sounds: No murmur heard. Pulmonary: Effort: Pulmonary effort is normal. Breath sounds: Normal breath sounds. Abdominal: General: Abdomen is flat. Palpations: Abdomen is soft. Musculoskeletal: General: Normal range of motion. Skin: General: Skin is warm. Neurological: General: No focal deficit present. Mental Status: She is alert and oriented to person, place, and time. Psychiatric: Mood and Affect: Mood normal. ASSESSMENT/PLAN: 1. Sore throat - ICD9: 462, ICD10: J02.9 Amox ( she states she has had, she is not allergic) Increase fluids - STREP A MOLECULAR (POC) - RAPID STREP TEST B/O - COVID WITH FLUA+B, ROUTINE Catherine Coon APRN.DAIRY ASSOCIATE [facility] 05-23-2022 Miscellaneous Notes Rx was sent 01/30/22 for 112 tablets and 5 refills to [facility] in [place]. 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 She states she has not had a fever, she is eating and drinking well, and denies rash at this time, Feeling very lightheaded as heading to bathroom, pt legs elevated, cool washwrag to head, she has not eaten, juice and water provided, states feels back to her self. Boyfriend called to drive her home, she is aware if this happens again report to ED PAST MEDICAL HISTORY Diagnosis Date Infected sebaceous cyst Menstrual cycle disorder 09/2015 Age 10 PMH - PAST MEDICAL HISTORY OF recurrent ear infections PMH - PAST MEDICAL HISTORY OF 09/2008 normal color vision PAST SURGICAL HISTORY Procedure Laterality Date ADENOIDECTOMY UNDER AGE 10 SUTURES -SPECIFY above right eyebrow around age 2 years TYMPANOSTOMY LOCAL/TOPICAL ANESTHESIA 10/16/2004 procedure done twice and has had adenoids out ALLERGIES Omnicef [Cefdinir] and Zithromax [Azithromycin] MEDICATIONS Drospirenone-Ethinyl Estradiol (VESTURA, 28,) 3-0.02 mg per tablet Take 1 tablet by mouth once daily. TAKE ACTIVE PILLS ONLY. FOR CONTINUOUS USE. amoxicillin (AMOXIL) 500 mg capsule Take 1 capsule by mouth twice daily for 10 days. FAMILY HISTORY Problem Relation Age of Onset Hypothyroidism Mother No Known Problems Father No Known Problems Sister No Known Problems Brother No Known Problems Brother No Known Problems Maternal Grandmother other (stomach anuerysm) Paternal Grandfather Heart Other PATERNAL & MATERNAL SIDE Diabetes Other PATERNAL & MATERNAL SIDE Cancer Other PATERNAL SIDE other (KIDNEY) Other MATERNAL SIDE Social History Tobacco Use Smoking status: Never Smokeless tobacco: Never Vaping Use Vaping Use: Never used Substance Use Topics Alcohol use: No Drug use: No Review of Systems HENT: Positive for sore throat. Objective Physical Exam Constitutional: Appearance: Normal appearance. HENT: Head: Normocephalic and atraumatic. Nose: Congestion present. Mouth/Throat: Mouth: Mucous membranes are dry. Pharynx: Posterior oropharyngeal erythema present. No oropharyngeal exudate. Eyes: Extraocular Movements: Extraocular movements intact. Pupils: Pupils are equal, round, and reactive to light. Cardiovascular: Rate and Rhythm: Normal rate and regular rhythm. Pulses: Normal pulses. Heart sounds: No murmur heard. Pulmonary: Effort: Pulmonary effort is normal. Breath sounds: Normal breath sounds. Abdominal: General: Abdomen is flat. Palpations: Abdomen is soft. Musculoskeletal: General: Normal range of motion. Skin: General: Skin is warm. Neurological: General: No focal deficit present. Mental Status: She is alert and oriented to person, place, and time. Psychiatric: Mood and Affect: Mood normal. ASSESSMENT/PLAN: 1. Sore throat - ICD9: 462, ICD10: J02.9 Amox ( she states she has had, she is not allergic) Increase fluids - STREP A MOLECULAR (POC) - RAPID STREP TEST B/O - COVID WITH FLUA+B, ROUTINE Catherine Coon APRN.MICHAEL documented in this encounter [facility] 01-30-2022 History of Present illness Narrative Attendant Lodging Facilities offered: Patient declines. Leonard is a 16 year old No obstetric history on file. who presents for an annual gynecologic exam without complaints. 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 Contraception: combined hormonal contraceptives HPV vaccine: Yes Last pap smear: never Sexually active: Yes Partner of 10 months History of STDs: No Patient concerns for STD exposure: No. Pain with intercourse: No Postcoital bleeding: No Documentation from previous visit of 01/11/2022 was copied and pasted, documentation has been reviewed and edited as necessary for today's visit. OB History No obstetric history on file. Credit Negotiator History LMP: 01/02/2022 (Exact Date), Having periods Age at Menarche: Age at First : Age at Menopause: Credit Negotiator History Comments: Sexual Activity: Not Currently; Male Contraception: Pill PAST MEDICAL HISTORY Diagnosis Date Infected sebaceous cyst Menstrual cycle disorder 09/2015 Age 10 PMH - PAST MEDICAL HISTORY OF recurrent ear infections PMH - PAST MEDICAL HISTORY OF 09/2008 normal color vision PAST SURGICAL HISTORY Procedure Laterality Date ADENOIDECTOMY UNDER AGE 10 SUTURES -SPECIFY above right eyebrow around age 2 years TYMPANOSTOMY LOCAL/TOPICAL ANESTHESIA 10/16/2004 procedure done twice and has had adenoids out FAMILY HISTORY Problem Relation Age of Onset Hypothyroidism Mother No Known Problems Father No Known Problems Sister No Known Problems Brother No Known Problems Brother No Known Problems Maternal Grandmother other (stomach anuerysm) Paternal Grandfather Heart Other PATERNAL & MATERNAL SIDE Diabetes Other PATERNAL & MATERNAL SIDE Cancer Other PATERNAL SIDE other (KIDNEY) Other MATERNAL SIDE SOCIAL HISTORY Social History Tobacco Use Smoking status: Never Smokeless tobacco: Never Vaping Use Vaping Use: Never used Substance Use Topics Alcohol use: No Drug use: No REVIEW OF SYSTEMS Abdomen: No bloating, early satiety, indigestion, or increased flatulence. No abdominal pain, nausea, vomiting, diarrhea, or constipation. Bladder: No dysuria, gross hematuria, urinary frequency, urinary urgency, or incontinence. Breast: No breast lumps, nipple d/c, overlying skin changes, redness or skin retraction. Allergies and current medication updated:Yes EXAM: BP 102/68 Ht 5' 5 (1.65m) Wt 128 lb (58.1kg) LMP 01/02/2022 BMI 21.30 kg/(m^2). GENERAL: pleasant, in no apparent distress HEENT: Normocephalic, atraumatic, mucus membranes moist, and no lesions NECK: Supple, full range of motion, no adenopathy, and thyroid normal DERMATOLOGY: Normal, without lesions, non-icteric, and non-hirsute BREAST: deferred CHEST: Normal inspiratory effort ABDOMEN: soft and non-tender PELVIC: deferred BIMANUAL: deferred NEURO: alert and oriented x3,exam grossly non-focal EXTREMITIES: normal ASSESSMENT/PLAN: 1) Health maintenance: Pap starting at the age of 21. Safe sex practices reviewed. Nutrition, exercise, and routine health maintenance exams reviewed. HPV vaccine completed series.. 2) Contraception: combined hormonal contraceptives - extended use discussed and ordered. Contraceptive options reviewed and information provided. 3) STD screening: Accepted STD check for Gonorrhea and Chlamydia. 4) Follow up one year or sooner as needed. Corinne Sellers APRN.DAIRY ASSOCIATE documented in this encounter [facility] 01-15-2022 Miscellaneous Notes Last annual with AG 01/11/21. [employer] message sent. Requested Prescriptions Pending Prescriptions Disp Refills VESTURA, 28, 3-0.02 mg per tablet [Pharmacy Med Name: VESTURA 3 MG-0.02 MG TABLET] 84 tablet 0 Sig: TAKE 1 TABLET BY MOUTH EVERY DAY RX INSTRUCTIONS: Pharmacy initiated this request. No need to notify patient. Yajaira Pettit RN documented in this encounter [facility] 10-10-2021 Miscellaneous Notes Reason for Call: positive COVID-19 home test today; mild h/a, malaise. Pt's mom expressing concern that pt was in [facility] recently, walking 11 miles one day, developed itching rash to bottoms of both legs, swelling to feet ankles. Rash has faded, itching continues, no swelling at this time, pt continues to take Benadryl. Pt's mom requesting phone call from Dr. Cast if Dr. Cast has any concern regarding symptoms. Outcome of Call: NOC offered to conference to Appointment Cntr to schedule virtual appointment for tomorrow. Pt's mom stating has been unsuccessful before in accessing virtual appointment. NOC spoke with Appointment Cntr. Advised, per Appointment Cntr. pt is not signed up for MyChart, pt may sign up this evening with assistance of Appointment Cntr. Pt's mom declining at this time. Answer Assessment - Initial Assessment Questions 1. COVID-19 DIAGNOSIS: positive rapid home test today 2. COVID-19 EXPOSURE: unsure 3. ONSET: When did the COVID-19 symptoms start? last evening 4. WORST SYMPTOM: h/a, body chills 5. COUGH: negative 6. FEVER: has not checked temperature, feels ' cool, sweaty' 7. RESPIRATORY STATUS: no difficulty breathing 8. [id number]: Are you getting better, staying the same or getting worse compared to yesterday? worse 9. HIGH RISK DISEASE: negative 10. VACCINE: Have you had the COVID-19 vaccine? negative 11. BOOSTER: Have you received your COVID-19 booster? negative 12. : n/a 13. OTHER SYMPTOMS: slight h/a; had itching rash to lower legs five days ago with swelling to ankles, feet; rash has faded, itching continues, is taking Benadryl 14. O2 SATURATION MONITOR: 97% Protocols used: Coronavirus (COVID-19) Diagnosed or [id number] documented in this encounter [facility] Evaluation note Diagnosis Encounter for surveillance of contraceptive pills Surveillance of previously prescribed contraceptive pill [facility] Diagnosis Encounter for gynecological examination (general) (routine) without abnormal findings- Primary Encounter for surveillance of contraceptive pills Surveillance of previously prescribed contraceptive pill Screen for STD (sexually transmitted disease) Screening examination for venereal disease [facility] Diagnosis Sore throat- Primary Acute pharyngitis [facility] Diagnosis Encounter for surveillance of contraceptive pills Surveillance of previously prescribed contraceptive pill [facility]* Diagnosis Dizziness- Primary Dizziness and giddiness History of syncope Other specified personal history presenting hazards to health [facility] Diagnosis Encounter for gynecological examination without abnormal finding- Primary Routine gynecological examination Encounter for surveillance of contraceptive pills Surveillance of previously prescribed contraceptive pill Need for influenza vaccination Need for prophylactic vaccination and inoculation against influenza documented in this encounter [facility] note* Diagnosis Encounter for general adult medical examination without abnormal findings- Primary Unspecified general medical examination Migraine without aura and without status migrainosus, not intractable Migraine without aura, without mention of intractable migraine without mention of status migrainosus Pre-syncope Syncope and collapse Encounter for screening for depression documented in this encounter [facility] note* Diagnosis Sore throat- Primary Acute pharyngitis documented in this encounter [facility] note* Diagnosis Encounter for gynecological examination (general) (routine) without abnormal findings- Primary Encounter for surveillance of contraceptive pills Surveillance of previously prescribed contraceptive pill Need for influenza vaccination Need for prophylactic vaccination and inoculation against influenza [facility] Outpatient Procedure (Routine) - Pending Review Specialty Diagnoses / Procedures Referred By Teresa tong [facility] Diagnoses Dizziness History of syncope Procedures ECG COMPLETE ECG ROUTINE ECG W/LEAST 12 LDS W/I&R Nirmal Smiley APRN.CNP [address] [place] [address] [facility] [address] [place] [address] Referral ID Status Reason Start Date Expiration Date Visits Requested Visits Authorized [id number] Pending Review Auto-Generat ed Referral 08/09/2022 08/09/2023 1 1 [facility] Summary Purpose Family History No Family History Records FoundNo Family History Records Found Advance Directives No Advanced Directives Records FoundNo Advanced Directives Records Found Additional Source Comments Source Comments (unrecognize d section and content) In the event this informatio n is protected by the Federal Confidentiality of Alcohol and Drug Abuse Patient Records regulations: The Federal rules restrict any use of the information to criminally investigate or prosecute any alcohol or drug abuse patient.[facility] the event this information is protected by the Federal Confidentiality of Alcohol and Drug Abuse Patient Records regulations: The Federal rules restrict any use of the information to criminally investigate or prosecute any alcohol or drug abuse patient.[facility] the event this information is protected by the Federal Confidentiality of Alcohol and Drug Abuse Patient Records regulations: The Federal rules restrict any use of the information to criminally investigate or prosecute any alcohol or drug abuse patient.[facility] the event this information is protected by the Federal Confidentiality of Alcohol and Drug Abuse Patient Records regulations: The Federal rules restrict any use of the information to criminally investigate or prosecute any alcohol or drug abuse patient.[facility] the event this information is protected by the Federal Confidentiality of Alcohol and Drug Abuse Patient Records regulations: The Federal rules restrict any use of the information to criminally investigate or prosecute any alcohol or drug abuse patient.[facility] the event this information is protected by the Federal Confidentiality of Alcohol and Drug Abuse Patient Records regulations: The Federal rules restrict any use of the information to criminally investigate or prosecute any alcohol or drug abuse patient.[facility] the event this information is protected by the Federal Confidentiality of Alcohol and Drug Abuse Patient Records regulations: The Federal rules restrict any use of the information to criminally investigate or prosecute any alcohol or drug abuse patient.[facility] the event this information is protected by the Federal Confidentiality of Alcohol and Drug Abuse Patient Records regulations: The Federal rules restrict any use of the information to criminally investigate or prosecute any alcohol or drug abuse patient.[facility] the event this information is protected by the Federal Confidentiality of Alcohol and Drug Abuse Patient Records regulations: The Federal rules restrict any use of the information to criminally investigate or prosecute any alcohol or drug abuse patient.[facility] the event this information is protected by the Federal Confidentiality of Alcohol and Drug Abuse Patient Records regulations: The Federal rules restrict any use of the information to criminally investigate or prosecute any alcohol or drug abuse patient.[facility] Reason for Visit (unrecogniz ed section and content) Reason Comments Covid19 Concern Reason Comments Refill Request Reason Comments Sinus Problem sinus pressure, drai nage, headache and sore throat x 1 day Reason Comments Dizzy spells Has been having dizz y spells since she had strep throat on 05/23/2022. Reporting that she had syncope while in express care being seen for strep throat, denies any other syncope. Dizzy spells almost daily, but not every single day. Episodes are very short only a few seconds in length, happens with exercise at the gym and at work more often. Reason Onset Date Comments Yearly Exam 02/01/2023 Immunizations 02/01/2023 Flu vaccination Reason Comments Well Child 17 yr [facility] ; Discuss ROBBINS 3-4 times per week, per pt, only Excedrine seems to help. ? Migraines Reason Comments Sore Throat ST and sinus congest ion x 1 day Reason Onset Date Comments Well Woman Immunizations 02/07/2024 Flu vaccination Care Teams (unrecognized sec tion and content) Health Therapist Relationship Specialty Start Date End Date Aydin Cast MD [address] [place] [address] PCP - General 03 Health Therapist Relationship Specialty Start Date End Date Aydin Cast MD [address] [facility], [place] [address] PCP - General 03 Health Therapist Relationship Specialty Start Date End Date Aydin Cast MD [address] [facility], [place] [id number] PCP - General 03 Health Therapist Relationship Specialty Start Date End Date Aydin Cast MD [address] [place] [address] PCP - General 03 Health Therapist Relationship Specialty Start Date End Date Aydin Cast MD [address] [facility] [place] [id number] PCP - General 03 Health Therapist Relationship Specialty Start Date End Date Aydin Cast MD [address] [place], [place] [id number] PCP - General 03 Health Therapist Relationship Specialty Start Date End Date Aydin Cast MD [address] [place], [place] [id number] PCP - General 03 Health Therapist Relationship Specialty Start Date End Date Aydin Cast MD [address] [place], [place] [id number] PCP - General 03 Health Therapist Relationship Specialty Start Date End Date Aydin Cast MD [address] [place], [place] [id number] PCP - General 03 INFORMATION SOURCE (unrecogn ized section and content) DATE CREATED AUTHOR 02/05/[address] [facility] DATE CREATED AUTHOR AUTHOR'S ORGANIZ ATION 02/18/2023 [facility] FOR RECORDS PERTAINING TO PATIENTS WHO ARE OR HAVE BEEN ENROLLED IN A CHEMICAL DEPENDENCY/SUBSTANCEABUSE PROGRAM, SOME INFORMATION MAY BE OMITTED. This clinical summary was aggregated from multiple sources. Caution should be exercised in using it in the provision of clinical care. This summary normalizes information from multiple sources, and as a consequence, information in this document may materially change the coding, format and clinical context of patient data. In addition, data may be omitted in some cases. CLINICAL DECISIONS SHOULD BE BASED ON THE PRIMARY CLINICAL RECORDS. [facility] [employer] provides no warranty or guarantee of the accuracy or completeness of information in this document.
[2024-11-07 23:34] VITALS: BP 129/81; PULSE 77; RESP 16; TEMP 36.7; O2SAT 100
--- NOTE | 2024-11-07 23:34 | EX.ED.DYSGE1 ---
HPI History of Present Illness Chief Complaint: Laceration Informant: patient Narrative Narrative: Patient is a 19-year-old female with no significant past medical history. She is [id number]. She states that just roughly 30 minutes to an hour prior to arrival she was at work and carrying a tray of glasses and plates. She states there was a drain on the kitchen floor that had been removed by they are performing some sort of cleaning. She states she did not see this and stepped on it causing herself to fall. She states she landed on an outstretched left hand and the glass was shattered and she cut her left hand. She denies any other injury. She denies striking her head or any loss of consciousness. She states that she is concerned there may be glass within her hand and that her laceration may need closed and therefore comes in for evaluation [facility] Medical History no medical history Home Medications ?Medication ?Instructions ?Recorded ?Last Taken ?Type drospirenone 3 mg-ethinyl 1 tab PO DAILY 11/07/24 Unknown History estradiol 0.02 mg tablet (Vestura (28)) ibuprofen 400 mg tablet 400 mg PO 4X/DAY 11/07/24 Unknown History Allergy/AdvReac Type Severity Reaction Status Date / Time azithromycin (From Zithromax) Allergy Hives Verified 11/07/24 22:26 cefdinir (From Omnicef) Allergy Hives Verified 11/07/24 22:26 Social History Smoking Status: Never smoker [facility] ED Constitutional Constitutional ED: Denies chills or fever(s) Eyes Eyes: Denies change in vision Cardiovascular Cardiovascular: Reports other Details: Negative syncope ; Denies chest pain Respiratory/Chest Respiratory/Chest: Denies cough or dyspnea Gastrointestinal Gastrointestinal: Denies abdominal pain, diarrhea, nausea or vomiting Musculoskeletal Musculoskeletal: Reports other Details: Positive left hand pain ; Denies back pain or neck pain Integumentary Reports other Details: Positive left hand laceration Neurologic Neurologic: Denies headache(s) or paresthesias Hematologic/Lymphatic Hematologic/Lymphatic: Denies easy bleeding or easy bruising EXAM Physical Exam Const Vital Signs: 11/07/24 22:19 11/07/24 23:34 Temperature 98.1 F 98.1 F Temperature Source Oral Pulse Rate 67 77 Respiratory Rate 16 16 Blood Pressure 122/70 H 129/81 H Blood Pressure Mean 87 97 Pulse Ox 100 100 Oxygen Delivery Method Room Air Positive well nourished and well developed General Appearance ED: well developed HEENT HEENT Narrative: Normocephalic atraumatic Eyes PERRL and EOMs intact bilaterally General Eye ED: Negative for scleral icterus Neck supple Resp normal respiratory effort and clear to auscultation bilaterally Cardio regular rate and regular rhythm Extremity Extremity Narrative: Left upper extremity is neurovascularly intact; AIN/PIN are intact and normal Along the thenar aspect of the left hand is a linear 1.5 cm dermal layer deep laceration without active bleeding or obvious retained foreign body. Patient also has a 1 cm superficial abrasion along the palmar portion of the fifth metacarpal as well as a similar superficial abrasion to the radial aspect of the ring finger. There is mild soft tissue swelling around the thenar eminence; no obvious bony deformity or joint effusion. No ecchymosis noted No pain in the anatomical snuffbox Remainder of the exam is normal Neuro oriented x3, CN's II-XII intact bilaterally and no sensory deficits noted Sensorium / Orientation: alert Motor Exam: strength 5/5 throughout Psych mental status grossly normal Skin Skin Narrative: Soft tissue swelling with lacerations and abrasions as documented above; no secondary findings of infection MDM MDM MDM Narrative Medical decision making narrative: Patient arrived to the ER with stable vitals. She reported a mechanical fall and therefore there is no need for cardiac or syncope workup. She did not strike her head or have loss of consciousness she does not take blood thinners or have history of bleeding disorder so there is no need for head CT. With concern for potential retained foreign object I did elect to perform a x-ray of the left hand. This revealed no sign of fracture dislocation or foreign body. As the patient does not have pain in the thenar eminence I have low concern for a scaphoid fracture. The patient's laceration to the thenar eminence is the only one deep enough requiring closure. However it is linear and there is no active bleeding and it is not over a area of high tension so there is no need for sutures and this can be closed with Dermabond as documented below. After the wound was close patient is otherwise safe for discharge Patient had the left hand/palmar laceration cleaned with chlorhexidine. Manual pressure was applied to bring the wound edges together well. Dermabond was then applied over top the wound edges and they were held together with close approximation. Patient tolerated procedure well without complication. History & Record Review Discussion w/independent historian: Patient Radiography Diagnostic Testing: Clinical Impression(s) from Imaging Studies Hand X-Ray 11/07/24 22:48 IMPRESSION: 1. No acute osseous abnormality. 2. No radiodense foreign body seen. Reading Location: [facility] Left hand x-ray as interpreted by the emergency medicine physician reveals no acute fracture dislocation or retained foreign object Discharge Plan Triage Chief Complaint: Laceration ED Provider: Vish Dalton Dx/Rx/DC Orders Clinical Impression: Laceration of left hand Instructions: ED Laceration, Extremity: Skin Glue Prescriptions: No Action ibuprofen 400 mg tablet 400 mg PO 4X/DAY drospirenone-ethinyl estradiol [Vestura (28)] 3-0.02 mg tablet 1 tab PO DAILY Primary Care Provider: Polo Luo Referrals: Polo Luo MD [Primary Care Provider] - Activity Restrictions/Additional Instructions: The Dermabond will peel off like a scab in 10 to 14 days. It is okay to shower and wash your hands as you normally would. Take Tylenol and or Motrin for pain control. Return to the ER should you have any further concerns Print Language: [place] Disposition Disposition: Home, Self Care Discharge Date/Time: 11/07/24 23:38
== END 2024-11-07 23:38 | disposition home or self-care (01) ==
PROVIDERS: Emergency Provider Emergency Medicine; PCP Pediatrics; Visit Provider Emergency Medicine
DX: S61.412A Laceration without foreign body of left hand, initial encounter (principal); W01.0XXA Fall on same level from slipping, tripping and stumbling without subsequent striking against object, initial encounter; W25.XXXA Contact with sharp glass, initial encounter
CPT/HCPCS: 12001; 73130; 99282